=== PATIENT | male | born 1950 | race Caucasian/White ===

== ENCOUNTER 2018-02-20 09:05 | Inpatient (IN) | payer OTHER ==
--- NOTE | 2018-02-20 09:21 | PDOC ---
History of Present Illness - History of Present Illness Initial Comments: 02/20/18 10:14 The patient is a 67 year old male, with a significant past medical history of DM , kidney stones, and HTN, who presents to the emergency department with, decreased vision in the right eye and constipation. As per patient, he was on vacation in [place] 3 weeks ago when he experienced sudden onset right visit loss for 4 days and can now only see colors and light. As per patient, when arriving back home he began to experience constipation which prompted him to visit his PCP, Dr. Erick Rhodes, to whom performed an ultrasound which had abnormal findings. As per patient, his PCP advised him to report to the ED for admission and further testing. While in the ED, the patients endorses constipation and decreased right eye vision. He denies any recent fevers, chills, headache or dizziness. He denies any recent nausea, vomit, or diarrhea. He denies any recent chest pain or shortness of breath. He denies any recent dysuria, frequency, urgency or hematuria. Allergies: NKA Past surgical history: Kidney stones. Social History: Former smoker (20 years ago). Daily alcohol usage (a bottle of wine). Denies recreational drug use. Primary Care Physician: Dr. Erick Rhodes <Devang Sun - Last Filed: 02/20/18 10:14> - General History Source: Patient, Family Exam Limitations: No Limitations <Kerwin Gilbert - Last Filed: 02/20/18 14:56> - General Chief Complaint: Pain Stated Complaint: PAIN, PCP REFERRED Time Seen by Provider: 02/20/18 09:14 Past History <Devang Sun - Last Filed: 02/20/18 10:14> - Past Medical History Diabetes: Yes GI Disorders: No Disorders: Yes (stones) HTN: Yes Hypercholesterolemia: Yes Thyroid Disease: No - Suicide/Smoking/Psychosocial Hx Smoking History: Former smoker Have you smoked in the past 12 months: No If you are a former smoker, when did you quit?: 20yrs ago Hx Alcohol Use: Yes (wine daily) Substance Use Type: Alcohol <Kerwin Gilbert - Last Filed: 02/20/18 14:56> - Past Medical History Allergies/Adverse Reactions: Allergies Allergy/AdvReac Type Severity Reaction Status Date / Time No Known Drug Allergies Allergy Verified 02/20/18 09:28 Home Medications: Ambulatory Orders Insulin (Levemir) [Levemir Vial] 10 unit SQ DAILY 02/20/18 Metoprolol Succinate [Toprol Xl] 50 mg PO HS 02/20/18 Review of Systems - Review of Systems Able to Perform ROS?: Yes Comments:: 02/20/18 10:14 GENERAL/CONSTITUTIONAL: No fever or chills. No weakness. +HEAD, EYES, EARS, NOSE AND THROAT: Decreased vision in the right eye. No ear pain or discharge. No sore throat. CARDIOVASCULAR: No chest pain or shortness of breath. RESPIRATORY: No cough, wheezing, or hemoptysis. +GASTROINTESTINAL: Constipation. No nausea, vomiting, or diarrhea. GENITOURINARY: No dysuria, frequency, or change in urination. MUSCULOSKELETAL: No joint or muscle swelling or pain. No neck or back pain. SKIN: No rash NEUROLOGIC: No headache, vertigo, loss of consciousness, or change in strength/ sensation. ENDOCRINE: No increased thirst. No abnormal weight change. HEMATOLOGIC/LYMPHATIC: No anemia, easy bleeding, or history of blood clots. ALLERGIC/IMMUNOLOGIC: No hives or skin allergy. All Other Systems: Reviewed and Negative <Devang Sun - Last Filed: 02/20/18 10:14> *Physical Exam - Vital Signs Last Vital Signs Temp Pulse Resp BP Pulse Ox 97.8 F 75 16 164/97 100 02/20/18 09:10 02/20/18 09:10 02/20/18 09:10 02/20/18 09:10 02/20/18 09:10 - Physical Exam Comments: 02/20/18 10:14 GENERAL: Awake, alert, and fully oriented, in no acute distress HEAD: No signs of trauma NECK: Normal ROM. LUNGS: Breath sounds equal, clear to auscultation bilaterally. No wheezes, and no crackles HEART: Regular rate and rhythm, normal S1 and S2, no murmurs, rubs or gallops ABDOMEN: Soft, nontender. No guarding, no rebound. EXTREMITIES: No edema. No clubbing or cyanosis. No cords, erythema, or tenderness NEUROLOGICAL: Cranial nerves II through XII grossly intact. Normal speech. SKIN: Warm, Dry, normal turgor, no rashes or lesions noted. <Devang Sun - Last Filed: 02/20/18 10:14> Heart Score/ECG Review #1 ECG reviewed & interpreted by me at: 09:40 02/20/18 09:45 NSR 74, low voltage QRS, no std/migdalia, TWI III QTC 417 msec <Kerwin Gilbert - Last Filed: 02/20/18 14:56> ED Treatment Course - LABORATORY CBC & Chemistry Diagram: 02/20/18 10:00 02/20/18 10:00 <GeoffreyshelbyDevang sharpe - Last Filed: 02/20/18 10:14> - LABORATORY CBC & Chemistry Diagram: 02/20/18 10:00 02/20/18 10:00 <Kerwin Gilbert - Last Filed: 02/20/18 14:56> Medical Decision Making - Medical Decision Making 02/20/18 09:50 A portion of this note was written by my scribe, under my supervision. Vital Signs Temp Pulse Resp BP Pulse Ox 97.8 F 75 16 164/97 100 02/20/18 09:10 02/20/18 09:10 02/20/18 09:10 02/20/18 09:10 02/20/18 09:10 67 year old male c/ hx of HTN, DM presents for constipation. Few weeks ago, pt noted R eye vision loss and constipation when visiting [place]. Upon returning, pt visited PMD Dr. Erick Rhodes, and on 02/15, had abdominal ultrasound. Resulted noted in [facility] with masses in liver concerning for metastasis. Pt currently denies pain, fevers, chills, nausea, vomiting, diarrhea. Pt was sent by PMD for evaluation for cancer. I had discussed with case with Dr. Erick Rhodes. Requests CT head, chest, abdomen/pelvis, consultation for Dr. Ifeanyi Maharaj, and admission to his service. 02/20/18 14:56 Pt CR is 1.[address] scans initially without contrast. Will give IVF and at another time, will see if patient can get IV contrast for CT scans. <Kerwin Gilbert - Last Filed: 02/20/18 14:56> *DC/Admit/Observation/Transfer - Attestations Scribe Attestion: 02/20/18 10:14 Documentation prepared by Devang Sun, acting as diagnostic medical sonographer for Kerwin Gilbert MD. <Devang Sun - Last Filed: 02/20/18 10:14> - Discharge Dispostion Decision to Admit order: Yes <Kerwin Gilbert - Last Filed: 02/20/18 14:56> Diagnosis at time of Disposition: Liver mass - Discharge Dispostion Condition at time of disposition: Stable
[2018-02-20 09:28] VITALS: BMI 40.6
[2018-02-20] MEDS ORDERED: SODIUM CHLORIDE 1,000 ML IV STA (09:40)
[2018-02-20 10:18] LABS: BASO % 0.3 % (0-2.0); EOS % 2.5 % (0-4.5); HEMATOCRIT 39.7 % (35.4-49); HEMOGLOBIN 13.5 GM/dL (11.7-16.9); MCH 28.7 pg (25.7-33.7); MCHC 34.1 g/dl (32.0-35.9); MEAN CELL VOLUME 84.3 fl (80-96); MEAN PLT VOLUME 8.5 fl (7.5-11.1); MONO % 7.7 % (3.8-10.2); NEUT % 77.5 % (42.8-82.8); PLATELET COUNT 114 K/MM3 (134-434); RBC 4.71 M/mm3 (4.00-5.60); RDW 14.5 % (11.9-15.9); WHITE BLOOD COUNT 9.4 K/mm3 (4.0-10.0)
[2018-02-20 10:35] LABS: INR 1.18 (0.83-1.09); PROTHROMBIN TIME (PATIENT) 13.3 SEC (9.7-13.0)
[2018-02-20 10:37] LABS: ACTIVATED PTT 25.4 SECONDS (25.2-36.5)
[2018-02-20 10:43] LABS: ALBUMIN 3.8 g/dl (3.4-5.0); ANION GAP 10 (8-16); BLOOD UREA NITROGEN 35 mg/dL (7-18); CALCIUM 8.5 mg/dL (8.5-10.1); CHLORIDE 106 mmol/L (98-107); CO2 23 mmol/L (21-32); CREATININE 1.5 mg/dL (0.7-1.3); GLUCOSE,RANDOM 151 mg/dL (74-106); PHOSPHOROUS 3.3 mg/dL (2.5-4.9); POTASSIUM 4.5 mmol/L (3.5-5.1); SGOT/AST 20 U/L (15-37); SGPT/ALT 24 U/L (12-78); SODIUM 139 mmol/L (136-145)
[2018-02-20 10:46] LABS: ALK PHOS 163 U/L (45-117); BILIRUBIN,TOTAL 0.7 mg/dL (0.2-1.0); LIPASE 281 U/L (73-393); TOT PROT 6.6 g/dl (6.4-8.2)
--- NOTE | 2018-02-20 13:40 | EKG ---
Test Reason : Blood Pressure : / mmHG Vent. Rate : 074 BPM Atrial Rate : 074 BPM P-R Int : 154 ms QRS Dur : 078 ms QT Int : 376 ms P-R-T Axes : 037 012 007 degrees QTc Int : 417 ms NORMAL SINUS RHYTHM LOW VOLTAGE QRS CANNOT RULE OUT ANTERIOR INFARCT , AGE UNDETERMINED ABNORMAL ECG NO PREVIOUS ECGS AVAILABLE Confirmed by MUKESH CHRISTIE MD ([id number]) on 02/20/2018 1:40:06 PM Referred By: Confirmed By:MUKESH CHRISTIE MD
--- NOTE | 2018-02-20 14:26 | HP ---
Admitting History and Physical - Admission Chief Complaint: c/o abd pain difuse and n/v 3 x days. dehydration. ultrasoud showed tumors in lt / kidneys ? liver ect History Source: Patient Limitations to Obtaining History: No Limitations - Past Medical History Cardiovascular: Yes: HTN Gastrointestinal: Yes: Diverticulosis, Other (gall stones) Renal/: Yes: Renal Inusuff Musculoskeletal: Yes: Other (lt leg phlebitis tx already) Endocrine: Yes: Diabetes Mellitus - Past Surgical History Past Surgical History: Yes: None (rt ing hernia lt knee sx) - Smoking History Smoking history: Former smoker Have you smoked in the past 12 months: No If you are a former smoker, when did you quit?: 20yrs ago - Alcohol/Substance Use Hx Alcohol Use: Yes (wine daily) - Social History ADL: Independent History of Recent Travel: No Home Medications - Allergies Allergies/Adverse Reactions: Allergies Allergy/AdvReac Type Severity Reaction Status Date / Time No Known Drug Allergies Allergy Verified 02/20/18 09:28 - Home Medications Home Medications: Ambulatory Orders Insulin (Levemir) [Levemir Vial] 10 unit SQ DAILY 02/20/18 Metoprolol Succinate [Toprol Xl] 50 mg PO HS 02/20/18 Family Disease History - Family Disease History Family History: Unremarkable Review of Systems - Review of Systems Constitutional: reports: Loss of Appetite, Unintentional Wgt. Loss Eyes: reports: No Symptoms HENT: reports: No Symptoms Neck: reports: No Symptoms Cardiovascular: reports: No Symptoms Respiratory: reports: No Symptoms Gastrointestinal: reports: Abdominal Pain, Vomiting Genitourinary: reports: No Symptoms Breasts: reports: No Symptoms Reported Musculoskeletal: reports: No Symptoms Integumentary: reports: No Symptoms Neurological: reports: No Symptoms Endocrine: reports: No Symptoms Hematology/Lymphatic: reports: No Symptoms Psychiatric: reports: No Symptoms Physical Examination Vital Signs: Vital Signs Temperature 97.8 F 02/20/18 09:10 Pulse Rate 75 02/20/18 09:10 Respiratory Rate 16 02/20/18 09:10 Blood Pressure 164/97 02/20/18 09:10 O2 Sat by Pulse Oximetry (%) 100 02/20/18 09:10 Constitutional: Yes: Well Nourished Eyes: Yes: WNL HENT: Yes: WNL Neck: Yes: WNL Cardiovascular: Yes: WNL Respiratory: Yes: WNL Gastrointestinal: Yes: Hypoactive Bowel Sounds, Tenderness ...Rectal Exam: Yes: Deferred Renal/: Yes: WNL Breast(s): Yes: WNL Musculoskeletal: Yes: WNL Extremities: Yes: WNL Edema: No Peripheral Pulses WNL: Yes Integumentary: Yes: WNL Neurological: Yes: WNL ...Motor Strength: WNL Psychiatric: Yes: WNL Labs: CBC, BMP 02/20/18 10:00 02/20/18 10:00 Problem List - Problems (1) Gallstone Code(s): K80.20 - CALCULUS OF GALLBLADDER W/O CHOLECYSTITIS W/O OBSTRUCTION (2) HTN (hypertension) Code(s): I10 - ESSENTIAL (PRIMARY) HYPERTENSION (3) Diabetes 1.5, managed as type 2 Code(s): E10.9 - TYPE 1 DIABETES MELLITUS WITHOUT COMPLICATIONS (4) CRF (chronic renal failure) Code(s): N18.9 - CHRONIC KIDNEY DISEASE, UNSPECIFIED (5) Thrombocytopenia Code(s): D69.6 - THROMBOCYTOPENIA, UNSPECIFIED Assessment/Plan ct abd pelviiv meds asd per home onco to see pt gi to see pt diet ect see labs in am
[2018-02-20 14:55] LABS: URINE APPEARANCE CLEAR; URINE BILIRUBIN NEGATIVE (<2.0 mg/dL); URINE COLOR YELLOW; URINE GLUCOSE (UA) NEGATIVE (NEGATIVE); URINE KETONE NEGATIVE (NEGATIVE); URINE LEUK ESTERASE NEGATIVE (NEGATIVE); URINE NITRITE NEGATIVE (NEGATIVE); URINE PROTEIN NEGATIVE (NEGATIVE); URINE UROBILINOGEN NEGATIVE mg/dL (0.2-1.0)
[2018-02-20 15:01] LABS: EPI CELLS RARE /HPF (FEW); URINE MUCUS RARE
[2018-02-20] MEDS: SODIUM CHLORIDE 1,000 ML IV SCH (15:06)
--- NOTE | 2018-02-20 16:50 | CON.GI ---
Consult Consult Specialty:: GI Reason for Consultation:: abnormal CT scan of the abdomen - History of Present Illness History of Present Illness: Chart reviewed. per initial intake: The patient is a 67 year old male, with a significant past medical history of DM, kidney stones, and HTN, who presents to the emergency department with, decreased vision in the right eye and constipation. As per patient, he was on vacation in [place] 3 weeks ago when he experienced sudden onset right visit loss for 4 days and can now only see colors and light. As per patient, when arriving back home he began to experience constipation which prompted him to visit his PCP, Dr. Erick Rhodes, to whom performed an ultrasound which had abnormal findings. As per patient, his PCP advised him to report to the ED for admission and further testing. While in the ED, the patient s endorses constipation and decreased right eye vision. He denies any recent fevers, chills, headache or dizziness. He denies any recent nausea, vomit, or diarrhea. He denies any recent chest pain or shortness of breath. He denies any recent dysuria, frequency, urgency or hematuria. Allergies: NKA Past surgical history: Kidney stones. Social History: Former smoker (20 years ago). Daily alcohol usage (a bottle of wine). Denies recreational drug use. CT A/P w/o revealed a possible pancreastic mass and multiple liver lesions. At the time of this encounter, the pt appears not in distress, or discomfort. C /o mild epigastric pain and tenderness x 2 weeks. C/o constipation x 2 weeks. No melena, hematochezia, hematemeis, dysphagis odynophagia, jaundice, fever, chills. A colonoscopy 2-3 y ago revealed a polyp. Neever had EGD. Corroborates the history as documented in ED. Family history significant for diverticulosis - History Source History Provided By: Patient, Medical Record Limitations to Obtaining History: No Limitations - Past Medical History Cardio/Vascular: Yes: HTN Gastrointestinal: Yes: Diverticulosis, Other (gall stones) Renal/: Yes: Renal Inusuff Musculoskeletal: Yes: Other (lt leg phlebitis tx already) Endocrine: Yes: Diabetes Mellitus - Past Surgical History Past Surgical History: Yes: None (rt ing hernia lt knee sx) - Alcohol/Substance Use Hx Alcohol Use: Yes (wine daily) - Smoking History Smoking history: Former smoker Have you smoked in the past 12 months: No If you are a former smoker, when did you quit?: 20yrs ago - Social History ADL: Independent History of Recent Travel: No Home Medications - Allergies Allergies/Adverse Reactions: Allergies Allergy/AdvReac Type Severity Reaction Status Date / Time No Known Drug Allergies Allergy Verified 02/20/18 09:28 - Home Medications Home Medications: Ambulatory Orders Insulin (Levemir) [Levemir Vial] 10 unit SQ DAILY 02/20/18 Metoprolol Succinate [Toprol Xl] 50 mg PO HS 02/20/18 Family Disease History - Family Disease History Family History: Unremarkable (non-contrib) Review of Systems Findings/Remarks: as per HPI, ED , and H&P Physical Exam-GI Vital Signs: Vital Signs Temperature 97.8 F 02/20/18 09:10 Pulse Rate 72 02/20/18 14:42 Respiratory Rate 18 02/20/18 14:42 Blood Pressure 149/92 02/20/18 14:42 O2 Sat by Pulse Oximetry (%) 100 02/20/18 14:42 Constitutional: Yes: Well Nourished, No Distress, Calm Eyes: Yes: Conjunctiva Clear Neck: Yes: Supple Respiratory: Yes: Regular Gastrointestinal Inspection: Yes: Distention. No: Ascites ...Auscultate: Yes: Normoactive Bowel Sounds ...Palpate: Yes: Soft, Tenderness (epig, mild). No: Firm/Rigid, Guarding, Mass Neurological: Yes: Alert, Oriented Labs: CBC, BMP 02/20/18 10:00 02/20/18 10:00 INR, PTT INR 1.18 (0.83-1.09) H 02/20/18 10:00 Laboratory Last Values WBC 9.4 K/mm3 (4.0-10.0) 02/20/18 10:00 RBC 4.71 M/mm3 (4.00-5.60) 02/20/18 10:00 Hgb 13.5 GM/dL (11.7-16.9) 02/20/18 10:00 Hct 39.7 % (35.4-49) 02/20/18 10:00 MCV 84.3 fl (80-96) 02/20/18 10:00 MCH 28.7 pg (25.7-33.7) 02/20/18 10:00 MCHC 34.1 g/dl (32.0-35.9) 02/20/18 10:00 RDW 14.5 % (11.9-15.9) 02/20/18 10:00 Plt Count 114 K/MM3 (134-434) L D 02/20/18 10:00 MPV 8.5 fl (7.5-11.1) 02/20/18 10:00 Absolute Neuts (auto) 7.2 # 02/20/18 10:00 Neutrophils % 77.5 % (42.8-82.8) 02/20/18 10:00 Lymphocytes % 12.0 % (8-40) D 02/20/18 10:00 Monocytes % 7.7 % (3.8-10.2) 02/20/18 10:00 Eosinophils % 2.5 % (0-4.5) D 02/20/18 10:00 Basophils % 0.3 % (0-2.0) 02/20/18 10:00 Nucleated RBC % 0 % (0-0) 02/20/18 10:00 PT with INR 13.30 SEC (9.7-13.0) H 02/20/18 10:00 INR 1.18 (0.83-1.09) H 02/20/18 10:00 PTT (Actin FS) 25.4 SECONDS (25.2-36.5) 02/20/18 10:00 Sodium 139 mmol/L (136-145) 02/20/18 10:00 Potassium 4.5 mmol/L (3.5-5.1) 02/20/18 10:00 Chloride 106 mmol/L (98-107) 02/20/18 10:00 Carbon Dioxide 23 mmol/L (21-32) 02/20/18 10:00 Anion Gap 10 (8-16) 02/20/18 10:00 BUN 35 mg/dL (7-18) H 02/20/18 10:00 Creatinine 1.5 mg/dL (0.7-1.3) H 02/20/18 10:00 Creat Clearance w eGFR 46.40 (>60) 02/20/18 10:00 Random Glucose 151 mg/dL (74-106) H 02/20/18 10:00 Lactic Acid 1.5 mmol/L (0.0-2.0) 02/20/18 09:50 Calcium 8.5 mg/dL (8.5-10.1) 02/20/18 10:00 Phosphorus 3.3 mg/dL (2.5-4.9) 02/20/18 10:00 Magnesium 2.0 mg/dL (1.8-2.4) 02/20/18 10:00 Total Bilirubin 0.7 mg/dL (0.2-1.0) 02/20/18 10:00 AST 20 U/L (15-37) D 02/20/18 10:00 ALT 24 U/L (12-78) D 02/20/18 10:00 Alkaline Phosphatase 163 U/L (45-117) H 02/20/18 10:00 Creatine Kinase 31 IU/L (39-308) L 02/20/18 10:00 Troponin I < 0.02 ng/ml (0.00-0.05) 02/20/18 10:00 C-Reactive Protein 3.0 MG/DL (0.00-0.3) H 02/20/18 10:00 Total Protein 6.6 g/dl (6.4-8.2) 02/20/18 10:00 Albumin 3.8 g/dl (3.4-5.0) 02/20/18 10:00 Lipase 281 U/L (73-393) 02/20/18 10:00 Urine Color Yellow 02/20/18 14:35 Urine Appearance Clear 02/20/18 14:35 Urine pH 5.0 (5.0-8.0) 02/20/18 14:35 Ur Specific [place] 1.019 (1.001-1.035) 02/20/18 14:35 Urine Protein Negative (NEGATIVE) 02/20/18 14:35 Urine Glucose (UA) Negative (NEGATIVE) 02/20/18 14:35 Urine Ketones Negative (NEGATIVE) 02/20/18 14:35 Urine Blood 1+ (NEGATIVE) H 02/20/18 14:35 Urine Nitrite Negative (NEGATIVE) 02/20/18 14:35 Urine Bilirubin Negative (<2.0 mg/dL) 02/20/18 14:35 Urine Urobilinogen Negative mg/dL (0.2-1.0) 02/20/18 14:35 Ur Leukocyte Esterase Negative (NEGATIVE) 02/20/18 14:35 Urine WBC (Auto) 1 /hpf (3-5) 02/20/18 14:35 Urine RBC (Auto) 6 /hpf (0-3) 02/20/18 14:35 Ur Epithelial Cells Rare /HPF (FEW) 02/20/18 14:35 Urine Mucus Rare 02/20/18 14:35 Gestational Age Cancelled 02/20/18 15:29 Maternl Age at Due Date Cancelled 02/20/18 15:29 Maternal Race Cancelled 02/20/18 15:29 Maternal Weight Cancelled 02/20/18 15:29 Insulin Depend Diabetes Cancelled 02/20/18 15:29 Multiple Cancelled 02/20/18 15:29 AFP Triple Screen Note Cancelled 02/20/18 15:29 AFP Triple Scrn Commnt Cancelled 02/20/18 15:29 AFP Absolute Value Cancelled 02/20/18 15:29 HCG Absolute Value Cancelled 02/20/18 15:29 HCG Adjusted MoM Cancelled 02/20/18 15:29 Dimeric Inhibin A MoM Cancelled 02/20/18 15:29 Down Mat Age Risk (1 in Cancelled 02/20/18 15:29 Down's 2nd Trimestr Risk Cancelled 02/20/18 15:29 Trisomy 18 Age Risk Cancelled 02/20/18 15:29 Trisomy 18 Increas Risk Cancelled 02/20/18 15:29 Spina Bifida Risk (1 in Cancelled 02/20/18 15:29 Imaging - Results Cat Scan: Report Reviewed (w/o contrast) Problem List - Problems (1) Epigastric abdominal pain Code(s): R10.13 - EPIGASTRIC PAIN (2) Abnormal abdominal CT scan Code(s): R93.5 - ABN FINDINGS ON DX IMAGING OF ABD REGIONS, INC RETROPERITON Assessment/Plan A 67M with the above findings on non-contrast CT, normal CBC, liver chemistry, bili, alp, lipase, no hx of jaundice, or weight loss. Ex-tobacco smoker and current daily wine drinker. Recommend: MRI of the abdomen with and without contrast. Agree with CA 19-9, CEA , AFP, CA-125. EGD and colonoscopy will be discussed after the MRI. WIll follow.
[2018-02-20] MEDS: INSULIN (LEVEMIR) 100 UNITS/ML UNITS SQ SCH (23:04)
[2018-02-21 08:51] LABS: ALBUMIN 3.4 g/dl (3.4-5.0); ANION GAP 6 (8-16); BILIRUBIN,TOTAL 0.6 mg/dL (0.2-1.0); BLOOD UREA NITROGEN 27 mg/dL (7-18); CALCIUM 8.1 mg/dL (8.5-10.1); CHLORIDE 107 mmol/L (98-107); CO2 26 mmol/L (21-32); CREATININE 1.3 mg/dL (0.7-1.3); GLUCOSE,RANDOM 118 mg/dL (74-106); POTASSIUM 4.6 mmol/L (3.5-5.1); SGOT/AST 18 U/L (15-37); SGPT/ALT 24 U/L (12-78); SODIUM 139 mmol/L (136-145); TOT PROT 6.2 g/dl (6.4-8.2)
[2018-02-21 08:52] LABS: ALK PHOS 154 U/L (45-117)
[2018-02-21 08:56] LABS: BASO % 0.3 % (0-2.0); EOS % 2.7 % (0-4.5); HEMATOCRIT 39.7 % (35.4-49); HEMOGLOBIN 13.3 GM/dL (11.7-16.9); LYMPH % 12.6 % (8-40); MCH 28.7 pg (25.7-33.7); MCHC 33.7 g/dl (32.0-35.9); MEAN CELL VOLUME 85.4 fl (80-96); MEAN PLT VOLUME 8.8 fl (7.5-11.1); MONO % 7.9 % (3.8-10.2); NEUT % 76.5 % (42.8-82.8); PLATELET COUNT 101 K/MM3 (134-434); RBC 4.65 M/mm3 (4.00-5.60); RDW 14.5 % (11.9-15.9); WHITE BLOOD COUNT 8.5 K/mm3 (4.0-10.0)
[2018-02-21] MEDS: LISINOPRIL 5 MG TABLET (FP) PO SCH (09:33)
[2018-02-21] MEDS ORDERED: ASPIRIN COATED 81 MG TABLET.EC PO SCH (10:00)
--- NOTE | 2018-02-21 10:52 | PN ---
Progress Note, Physician Chief Complaint: ruq pain scale of 7 increased ikling down rad to back - Current Medication List Current Medications: Active Medications Aspirin (Ecotrin -) 81 mg PO DAILY [facility] Last Admin: 02/21/18 09:33 Dose: 81 mg Sodium Chloride (Normal Saline -) 1,000 mls @ 42 mls/hr IV ASDIR [facility] Last Admin: 02/20/18 15:06 Dose: 42 mls/hr Insulin Detemir (Levemir Vial) 10 units SQ HS [facility] Last Admin: 02/20/18 23:04 Dose: Not Given Lisinopril (Prinivil) 5 mg PO DAILY [facility] Last Admin: 02/21/18 09:33 Dose: 5 mg Metoprolol Succinate (Toprol Xl -) 50 mg PO DAILY [facility] Last Admin: 02/21/18 09:33 Dose: 50 mg - Objective Vital Signs: Vital Signs Temperature 98.3 F 02/21/18 05:06 Pulse Rate 73 02/21/18 05:06 Respiratory Rate 20 02/21/18 05:06 Blood Pressure 138/85 02/21/18 05:06 O2 Sat by Pulse Oximetry (%) 96 02/21/18 01:51 Constitutional: Yes: No Distress Eyes: Yes: WNL HENT: Yes: WNL Neck: Yes: WNL Cardiovascular: Yes: WNL Respiratory: Yes: WNL Gastrointestinal: Yes: Tenderness, Other (dierrea) ...Rectal Exam: Yes: Deferred Genitourinary: Yes: WNL Breast(s): Yes: WNL Musculoskeletal: Yes: WNL Extremities: Yes: WNL Edema: No Peripheral Pulses WNL: Yes Integumentary: Yes: WNL Neurological: Yes: WNL ...Motor Strength: WNL Psychiatric: Yes: WNL Labs: CBC, BMP 02/21/18 07:21 02/21/18 07:21 INR, PTT INR 1.18 (0.83-1.09) H 02/20/18 10:00 Problem List - Problems (1) Gallstone Code(s): K80.20 - CALCULUS OF GALLBLADDER W/O CHOLECYSTITIS W/O OBSTRUCTION (2) HTN (hypertension) Code(s): I10 - ESSENTIAL (PRIMARY) HYPERTENSION (3) Diabetes 1.5, managed as type 2 Code(s): E10.9 - TYPE 1 DIABETES MELLITUS WITHOUT COMPLICATIONS (4) CRF (chronic renal failure) Code(s): N18.9 - CHRONIC KIDNEY DISEASE, UNSPECIFIED (5) Thrombocytopenia Code(s): D69.6 - THROMBOCYTOPENIA, UNSPECIFIED Assessment/Plan cret better will do mri abd pancreas cont as is tramadol for pain chk labs in am gi ? scoping onco f/u
--- NOTE | 2018-02-21 11:27 | CONSULT ---
Consultation: REQUESTING PROVIDER: CONSULT REQUEST: We have been asked to medically evaluate this patient for ( Hematology- oncology). HISTORY OF PRESENT ILLNESS: 67 y/o male with PMH of DM, kidney stones, HTN came to hospital with a complaint of progressive constipation and pain in RUQ. Patient states that constipation started few weeks ago. Usually he use to have 2 -3 bowel movements in a day but now from few weeks he have bowel movement once in 2 days. States caliber of stool has changed and its like thin, but he didn't notice any blood and mucus in stool. He denies activities aide diarrhoea but he noticed feeling of incomplete defecation. States color of stool is brown. Denies any yellow discoloration of eyes and skin. Denies change in weight and appetite. Also report pain in RUQ from 2 week, moderate to sever in intensity, sharp, intermittent gets better itself, tender on palpation. Denies fever, chills, sob, chest pain, numbness or weakness in any part of body. Also reports loss of vision in right eye, States he has progressive decreased vision in his right eye from one month and he didnt follow any doctor for it but now from last few days he cant see any thing from right eye. PMH: DM, kidney stones, HTN PSH: kidney stone social: Former smoked, smoked for 25 years, pack a day, stopped 20 years ago. drinks one bottle of wine every day. 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 Family: Mother from stroke. Father from natural cause. sister has GI cancer, details not available. children healthy REVIEW OF SYSTEMS: CONSTITUTIONAL: Absent: fever, chills, diaphoresis, generalized weakness, HEENT: Absent: rhinorrhea, nasal congestion, throat pain, throat swelling, difficulty swallowing, CARDIOVASCULAR: Absent: chest pain, syncope, palpitations, irregular heart rate, RESPIRATORY: Absent: cough, shortness of breath, dyspnea with exertion, GASTROINTESTINAL: as above GENITOURINARY: Absent: dysuria, frequency, urgency, hesitancy, MUSCULOSKELETAL: Absent: myalgia, arthralgia, joint swelling, SKIN: Absent: rash, itching, pallor HEMATOLOGIC/IMMUNOLOGIC: Absent: easy bleeding, easy bruising, lymphadenopathy, frequent infections ENDOCRINE: Absent: unexplained weight gain, unexplained weight loss, heat intolerance, cold intolerance NEUROLOGIC: Absent: headache, focal weakness or paresthesias, dizziness, unsteady gait, seizure, mental status changes, bladder or bowel incontinence PSYCHIATRIC: Absent: anxiety, depression, PHYSICAL EXAMINATION 02/21/18 02/21/18 01:51 05:06 Temperature 98.3 F Pulse Rate 73 Pulse Rate [ Radial] Respiratory 20 20 Rate Blood Pressure 138/85 Blood Pressure [Right Arm] O2 Sat by Pulse 96 Oximetry (%) GENERAL: Awake, alert, and fully oriented, in no acute distress. HEAD: Normal with no signs of trauma. EYES:, sclera anicteric, conjunctiva clear. EARS, NOSE, THROAT: oropharynx clear without exudates. Moist mucous membranes. NECK: Normal range of motion, supple without lymphadenopathy, LUNGS: Breath sounds equal, clear to auscultation bilaterally. No wheezes, and no crackles. No accessory muscle use. HEART: Regular rate and rhythm, normal S1 and S2 ABDOMEN: Soft, mild tender in RUQ, not distended, normoactive bowel sounds, no guarding, no rebound, hepatomegaly, no splenomegaly. Scrotum: No testicular mass, circumcised. MUSCULOSKELETAL: Normal range of motion at all joints. No bony deformities or tenderness. No CVA tenderness. UPPER EXTREMITIES: 2+ pulses, warm, well-perfused. No cyanosis. No clubbing. No peripheral edema. LOWER EXTREMITIES:warm, well-perfused. No calf tenderness. No peripheral edema. NEUROLOGICAL: . Normal speech. Normal gait. PSYCHIATRIC: Cooperative. Good eye contact. SKIN: Warm, dry, Laboratory Results - last 24 hr 02/20/18 02/20/18 02/20/18 10:00 14:35 15:00 WBC RBC Hgb Hct MCV MCH MCHC RDW Plt Count MPV Absolute Neuts (auto) Neutrophils % Lymphocytes % Monocytes % Eosinophils % Basophils % Nucleated RBC % ESR Sodium 139 Potassium 4.5 Chloride 106 Carbon Dioxide 23 Anion Gap 10 BUN 35 H Creatinine 1.5 H Creat Clearance w eGFR 46.40 POC Glucometer Random Glucose 151 H Calcium 8.5 Phosphorus 3.3 Magnesium 2.0 Total Bilirubin 0.7 AST 20 D ALT 24 D Alkaline Phosphatase 163 H Creatine Kinase 31 L Troponin I < 0.02 C-Reactive Protein 3.0 H Total Protein 6.6 Albumin 3.8 Lipase 281 CA 19-9 Antigen 76019 H Urine Color Yellow Urine Appearance Clear Urine pH 5.0 Ur Specific [place] 1.019 Urine Protein Negative Urine Glucose (UA) Negative Urine Ketones Negative Urine Blood 1+ H Urine Nitrite Negative Urine Bilirubin Negative Urine Urobilinogen Negative Ur Leukocyte Esterase Negative Urine WBC (Auto) 1 Urine RBC (Auto) 6 Ur Epithelial Cells Rare Urine Mucus Rare Gestational Age Maternl Age at Due Date Maternal Race Maternal Weight Insulin Depend Diabetes Multiple AFP Triple Screen Note AFP Triple Scrn Commnt AFP Absolute Value HCG Absolute Value HCG Adjusted MoM Dimeric Inhibin A MoM Down Mat Age Risk (1 in Down's 2nd Trimestr Risk Trisomy 18 Age Risk Trisomy 18 Increas Risk Spina Bifida Risk (1 in Active Medications Generic Name Dose Route Start Last Admin Trade Name Freq PRN Reason Stop Dose Admin Aspirin 81 mg 02/21/18 10:00 02/21/18 09:33 Ecotrin - PO 81 mg DAILY ZENY Administration Sodium Chloride 1,000 mls @ 42 mls/hr 02/20/18 14:45 02/20/18 15:06 Normal Saline - IV 42 mls/hr ASDIR ZENY Administration Insulin Detemir 10 units 02/20/18 22:00 02/20/18 23:04 Levemir Vial SQ Not Given HS ZENY Lisinopril 5 mg 02/21/18 10:00 02/21/18 09:33 Prinivil PO 5 mg DAILY ZENY Administration Metoprolol Succinate 50 mg 02/21/18 10:00 02/21/18 09:33 Toprol Xl - PO 50 mg DAILY ZENY Administration Tramadol HCl 50 mg 02/21/18 22:00 Ultram - PO 02/25/18 23:59 BID ZENY Laboratory Tests 02/20/18 15:00 CA 19-9 Antigen 19939 H ASSESSMENT/PLAN:A 67M with findings of mass in tail of pancreas about 4 cm and multiple lesions in liver with max size of 6.8 with elevated ca 19-9 suggest he might have Ca. pancreas with metastatic disease. Patient needs to have liver biopsy for which we will hold his aspirin and start him on lovenox for dvt prophylaxis. CA 19-9 elevated ( [id number]) rest markers pending CEA, AFP, CA125. MRI of the abdomen with and without contrast pending. Consider opthalmology consult for loss of vision in eye. GI follow up. Dispo: We will continue to follow the patient. Thank you for this consultative opportunity. Visit type - Emergency Visit Emergency Visit: Yes ED Registration Date: 02/20/18 Care time: The patient presented to the Emergency Department on the above date and was hospitalized for further evaluation of their emergent condition. - New Patient This patient is new to me today: Yes Date on this admission: 02/23/18 - Critical Care Critical Care patient: No
--- NOTE | 2018-02-21 17:53 | PN ---
Teaching Attending Note Name of Resident: Alfredito Brady ATTENDING PHYSICIAN STATEMENT I saw and evaluated the patient. I reviewed the resident's note and discussed the case with the resident. I agree with the resident's findings and plan as documented. SUBJECTIVE:67 year old male presents with RUQ pain Pancreatic mass in tail and liver masses suspicious for mets on CT. Also loss of vision in right eye which occurred rather acutely and has progressed over past one month. OBJECTIVE: Last Vital Signs Temp Pulse Resp BP Pulse Ox 98.0 F 71 18 136/82 96 02/21/18 15:02/21/18 15:02/21/18 15:02/21/18 15:02/21/18 14:00 HEENT: JUAN, EOM Intact, right ptosis Oropharynx: No thrush, No mucositis Neck: Supple Nodes: Without adenopathy Breasts: Without masses Cor: RSR, No murmurs, No gallops Lungs: Clear to P&A Abd: Soft, Normal bowel sounds, No organomegaly, distended testes descended circumcised Ext:No significant edema Skin: No rashes, Integument intact ASSESSMENT AND PLAN: Pancreatic tail mass with liver masses . Ca-19.9 of >24,000. Picture compatible with pancreatic ca with liver mets, Right eye visual loss--? embolic , ? thrombotic from hypercoagulability ? marantic endocarditis. Plan: D/C ASA Liver biopsy when off ASA 5+ days by I.R> DVT prophylaxis Opthalmology consult
[2018-02-21] MEDS: SODIUM CHLORIDE 1,000 ML IV SCH (18:32)
[2018-02-21] MEDS: ENOXAPARIN NA (PORCINE) 40 MG/0.4 ML DISP.SYRIN SQ SCH (18:32)
[2018-02-21] MEDS: traMADol HCL 50 MG TABLET PO SCH (21:44)
[2018-02-21] MEDS: INSULIN (LEVEMIR) 100 UNITS/ML UNITS SQ SCH (21:46)
[2018-02-22] MEDS ORDERED: INSULIN (LEVEMIR) 100 UNITS/ML UNITS SQ ONE (07:04)
[2018-02-22] MEDS ORDERED: INSULIN (NOVOLOG) ASPART 100 UNITS/ML 10ML VIAL ONE (07:04)
[2018-02-22 08:12] LABS: HEMATOCRIT 37.5 % (35.4-49); HEMOGLOBIN 12.8 GM/dL (11.7-16.9); INR 1.19 (0.83-1.09); MEAN CELL VOLUME 85.2 fl (80-96); PLATELET COUNT 106 K/MM3 (134-434); PROTHROMBIN TIME (PATIENT) 13.4 SEC (9.7-13.0); RBC 4.41 M/mm3 (4.00-5.60); RDW 14.5 % (11.9-15.9); WHITE BLOOD COUNT 7.8 K/mm3 (4.0-10.0)
[2018-02-22 08:15] LABS: ACTIVATED PTT 30.7 SECONDS (25.2-36.5)
[2018-02-22 08:53] LABS: ANION GAP 6 (8-16); BLOOD UREA NITROGEN 22 mg/dL (7-18); CALCIUM 7.8 mg/dL (8.5-10.1); CHLORIDE 108 mmol/L (98-107); CO2 23 mmol/L (21-32); GLUCOSE,RANDOM 117 mg/dL (74-106); POTASSIUM 4.3 mmol/L (3.5-5.1); SODIUM 137 mmol/L (136-145)
[2018-02-22 08:57] LABS: ALK PHOS 146 U/L (45-117); BILIRUBIN,TOTAL 0.5 mg/dL (0.2-1.0); CREATININE 1.2 mg/dL (0.7-1.3); SGOT/AST 17 U/L (15-37); SGPT/ALT 23 U/L (12-78); TOT PROT 5.7 g/dl (6.4-8.2)
[2018-02-22] MEDS: ENOXAPARIN NA (PORCINE) 40 MG/0.4 ML DISP.SYRIN SQ SCH (09:42)
[2018-02-22] MEDS: traMADol HCL 50 MG TABLET PO SCH ×2 (09:43→21:05)
[2018-02-22] MEDS: LISINOPRIL 5 MG TABLET (FP) PO SCH (09:46)
--- NOTE | 2018-02-22 12:16 | ECHO ---
Name: DOMENICA ADAMS Exam:Adult Echocardiogram Study Date: 02/22/2018 11:05 AM Age: 67 yrs Reason For Study: EYE LOSS VISION Height: 66 in Weight: 252 lb BSA: 2.2 m2 MMode/2D Measurements & Calculations IVSd: 1.3 cm Ao root diam: 3.8 cm LVIDd: 5.0 cm LA dimension: 3.6 cm LVIDs: 3.4 cm LVPWd: 1.3 cm EDV(Teich): 117.7 ml ESV(Teich): 46.3 ml Doppler Measurements & Calculations MV E max erik: 81.0 cm/sec Med Peak E' Erik: 6.5 cm/sec MV A max erik: 74.2 cm/sec Med E/e': 12.4 MV E/A: 1.1 Lat Peak E' Erik: 8.6 cm/sec MV dec time: 0.36 sec Lat E/e': 9.4 Left Ventricle The left ventricle is normal in size. There is mild concentric left ventricular hypertrophy. The left ventricular ejection fraction is normal. Right Ventricle The right ventricular systolic function is normal. Atria Normal left and right atrial size and function. Mitral Valve There is mild mitral regurgitation. Tricuspid Valve There is trace tricuspid regurgitation. Aortic Valve There is trivial aortic sclerosis.;. Great Vessels The aortic root is normal size. Pericardium/Pleura There is no pericardial effusion. Interpretation Summary The right ventricular systolic function is normal. Normal left and right atrial size and function. There is mild mitral regurgitation. There is trace tricuspid regurgitation. There is trivial aortic sclerosis.; The aortic root is normal size. There is no pericardial effusion. Kaushik Villela MD 02/22/2018 12:15 PM
--- NOTE | 2018-02-22 18:04 | CON.GU ---
Consult Consult Specialty:: Reason for Consultation:: renal calculi - History of Present Illness History of Present Illness: 67 year old male, with a significant past medical history of DM, kidney stones, and HTN, who presents to the emergency department with, decreased vision in the right eye and constipation. As per patient, he was on vacation in [place] 3 weeks ago when he experienced sudden onset right visit loss for 4 days and can now only see colors and light. As per patient, when arriving back home he began to experience constipation which prompted him to visit his PCP, Dr. Erick Rhodes, to whom performed an ultrasound which had abnormal findings. As per patient, his PCP advised him to report to the ED for admission and further testing. While in the ED, the patients endorses constipation and decreased right eye vision. He denies any recent fevers, chills, headache or dizziness. He denies any recent nausea, vomit, or diarrhea. He denies any recent chest pain or shortness of breath. He denies any recent dysuria, frequency, urgency or hematuria. He was found to have pancreatic mass w liver lesions c/w metastatic pancreatic ca and renal calculi and cons req. - History Source History Provided By: Patient, Medical Record Limitations to Obtaining History: No Limitations - Past Medical History Cardio/Vascular: Yes: HTN Gastrointestinal: Yes: Diverticulosis, Other (gall stones) Renal/: Yes: Renal Inusuff Musculoskeletal: Yes: Other (lt leg phlebitis tx already) Endocrine: Yes: Diabetes Mellitus - Past Surgical History Past Surgical History: Yes: None (rt ing hernia lt knee sx) - Alcohol/Substance Use Hx Alcohol Use: Yes (wine daily) - Smoking History Smoking history: Former smoker Have you smoked in the past 12 months: No If you are a former smoker, when did you quit?: 20yrs ago - Social History ADL: Independent History of Recent Travel: No Home Medications - Allergies Allergies/Adverse Reactions: Allergies Allergy/AdvReac Type Severity Reaction Status Date / Time No Known Drug Allergies Allergy Verified 02/20/18 09:28 - Home Medications Home Medications: Ambulatory Orders Insulin (Levemir) [Levemir Vial] 10 unit SQ DAILY 02/20/18 Metoprolol Succinate [Toprol Xl] 50 mg PO HS 02/20/18 Review of Systems - Review of Systems Genitourinary: denies: Flank Pain Physical Exam- Vital Signs: Vital Signs Temperature 98.2 F 02/22/18 15:16 Pulse Rate 79 02/22/18 15:16 Respiratory Rate 18 02/22/18 15:16 Blood Pressure 130/75 02/22/18 15:16 O2 Sat by Pulse Oximetry (%) 96 02/22/18 09:00 Constitutional: Yes: Well Nourished, No Distress, Calm Gastrointestinal: Yes: WNL, Normal Bowel Sounds, Soft Renal/: Yes: WNL Kidneys: Yes: WNL Pelvis: Yes: WNL Testicles: Yes: WNL, Descended Scrotum: Yes: WNL Penis: Yes: WNL Prostate Exam: Yes: WNL Musculoskeletal: Yes: WNL Extremities: Yes: WNL Labs: CBC, BMP 02/22/18 07:00 02/22/18 07:00 Imaging - Results Cat Scan: Report Reviewed Problem List - Problems (1) Renal calculi Assessment/Plan: f/u w Dr Blayne Rhodes after disch for ESWL . Code(s): N20.0 - CALCULUS OF KIDNEY (2) Pancreatic mass Code(s): K86.9 - DISEASE OF PANCREAS, UNSPECIFIED
--- NOTE | 2018-02-22 18:50 | PN ---
Physical Exam: SUBJECTIVE: Patient seen and examined sitting comfortably denies pain OBJECTIVE: Vital Signs Period Temp Pulse Resp BP Sys/Thompson Pulse Ox Last 24 Hr 97.5 F-98.4 F 65-79 18-20 122-150/72-93 96-96 GENERAL: Awake, alert, and fully oriented, in no acute distress. HEAD: Normal with no signs of trauma. EYES:, sclera anicteric, conjunctiva clear. EARS, NOSE, THROAT: oropharynx clear without exudates. Moist mucous membranes. NECK: Normal range of motion, supple without lymphadenopathy, LUNGS: Breath sounds equal, clear to auscultation bilaterally. No wheezes, and no crackles. No accessory muscle use. HEART: Regular rate and rhythm, normal S1 and S2 ABDOMEN: Soft, mild tender in RUQ, not distended, normoactive bowel sounds, no guarding, no rebound, hepatomegaly, no splenomegaly. Scrotum: No testicular mass, circumcised. MUSCULOSKELETAL: Normal range of motion at all joints. No bony deformities or tenderness. No CVA tenderness. UPPER EXTREMITIES: 2+ pulses, warm, well-perfused. No cyanosis. No clubbing. No peripheral edema. LOWER EXTREMITIES:warm, well-perfused. No calf tenderness. No peripheral edema. NEUROLOGICAL: . Normal speech. Normal gait. PSYCHIATRIC: Cooperative. Good eye contact. SKIN: Warm, dry, Laboratory Results - last 24 hr 02/20/18 02/21/18 02/21/18 15:29 07:21 21:46 WBC RBC Hgb Hct MCV MCH MCHC RDW Plt Count MPV PT with INR INR PTT (Actin FS) Sodium Potassium Chloride Carbon Dioxide Anion Gap BUN Creatinine Creat Clearance w eGFR POC Glucometer 186 Random Glucose Calcium Total Bilirubin AST ALT Alkaline Phosphatase Total Protein Albumin Tumor Marker AFP 3.8 Carcinoembryonic Ag 13.0 H CA 125 Antigen 384.2 Gestational Age Cancelled Maternl Age at Due Date Cancelled Maternal Race Cancelled Maternal Weight Cancelled Insulin Depend Diabetes Cancelled Multiple Cancelled AFP Triple Screen Note Cancelled AFP Triple Scrn Commnt Cancelled AFP Absolute Value Cancelled HCG Absolute Value Cancelled HCG Adjusted MoM Cancelled Dimeric Inhibin A MoM Cancelled Down Mat Age Risk (1 in Cancelled Down's 2nd Trimestr Risk Cancelled Trisomy 18 Age Risk Cancelled Trisomy 18 Increas Risk Cancelled Spina Bifida Risk (1 in Cancelled 02/22/18 02/22/18 02/22/18 07:00 07:00 07:00 WBC 7.8 RBC 4.41 Hgb 12.8 Hct 37.5 MCV 85.2 MCH 29.0 MCHC 34.0 RDW 14.5 Plt Count 106 L MPV 9.0 PT with INR 13.40 H INR 1.19 H PTT (Actin FS) 30.7 Sodium 137 Potassium 4.3 Chloride 108 H Carbon Dioxide 23 Anion Gap 6 L BUN 22 H Creatinine 1.2 Creat Clearance w eGFR > 60 POC Glucometer Random Glucose 117 H Calcium 7.8 L Total Bilirubin 0.5 AST 17 ALT 23 Alkaline Phosphatase 146 H Total Protein 5.7 L Albumin 3.0 L Tumor Marker AFP Carcinoembryonic Ag CA 125 Antigen Gestational Age Maternl Age at Due Date Maternal Race Maternal Weight Insulin Depend Diabetes Multiple AFP Triple Screen Note AFP Triple Scrn Commnt AFP Absolute Value HCG Absolute Value HCG Adjusted MoM Dimeric Inhibin A MoM Down Mat Age Risk (1 in Down's 2nd Trimestr Risk Trisomy 18 Age Risk Trisomy 18 Increas Risk Spina Bifida Risk (1 in 02/22/18 16:34 WBC RBC Hgb Hct MCV MCH MCHC RDW Plt Count MPV PT with INR INR PTT (Actin FS) Sodium Potassium Chloride Carbon Dioxide Anion Gap BUN Creatinine Creat Clearance w eGFR POC Glucometer 139 Random Glucose Calcium Total Bilirubin AST ALT Alkaline Phosphatase Total Protein Albumin Tumor Marker AFP Carcinoembryonic Ag CA 125 Antigen Gestational Age Maternl Age at Due Date Maternal Race Maternal Weight Insulin Depend Diabetes Multiple AFP Triple Screen Note AFP Triple Scrn Commnt AFP Absolute Value HCG Absolute Value HCG Adjusted MoM Dimeric Inhibin A MoM Down Mat Age Risk (1 in Down's 2nd Trimestr Risk Trisomy 18 Age Risk Trisomy 18 Increas Risk Spina Bifida Risk (1 in Active Medications Generic Name Dose Route Start Last Admin Trade Name Freq PRN Reason Stop Dose Admin Enoxaparin Sodium 40 mg 02/21/18 17:45 02/22/18 09:42 Lovenox - SQ 40 mg DAILY ZENY Administration Sodium Chloride 1,000 mls @ 42 mls/hr 02/20/18 14:45 02/21/18 18:32 Normal Saline - IV 42 mls/hr ASDIR ZENY Administration Insulin Detemir 10 units 02/20/18 22:00 02/21/18 21:46 Levemir Vial SQ 10 unit HS ZENY Administration Lisinopril 5 mg 02/21/18 10:00 02/22/18 09:46 Prinivil PO 5 mg DAILY ZENY Administration Metoprolol Succinate 50 mg 02/21/18 10:00 02/22/18 09:46 Toprol Xl - PO 50 mg DAILY ZENY Administration Tramadol HCl 50 mg 02/21/18 22:00 02/22/18 09:43 Ultram - PO 02/25/18 23:59 Not Given BID ZENY ASSESSMENT/PLAN: 67M with findings of mass in tail of pancreas about 4 cm and multiple lesions in liver with max size of 6.8 with elevated ca 19-9 suggest he might have Ca. pancreas with metastatic disease. Patient needs to have liver biopsy for which we will hold his aspirin and start him on lovenox for dvt prophylaxis. CA 19-9 elevated ( 20025), CEA 13. Discussed with Dr. Hansen. He advised that patient needs to be off from aspirin for 5-7 days before liver biopsy. MRI pending Consider opthalmology consult for loss of vision in eye. GI follow up. Visit type - Emergency Visit Emergency Visit: Yes ED Registration Date: 02/20/18 Care time: The patient presented to the Emergency Department on the above date and was hospitalized for further evaluation of their emergent condition. - New Patient This patient is new to me today: No - Critical Care Critical Care patient: No
--- NOTE | 2018-02-22 19:33 | PN ---
Teaching Attending Note Name of Resident: Alfredito Brady ATTENDING PHYSICIAN STATEMENT I saw and evaluated the patient. I reviewed the resident's note and discussed the case with the resident. I agree with the resident's findings and plan as documented. SUBJECTIVE: OBJECTIVE: ASSESSMENT AND PLAN:Pancreatic tail mass , liver masses, elevated Ca-19.9 all suggest pancreatic ca with liver mets. Unable to negotiate MRI . Liver biopsy more relevent for diagnosis. Will have biopsy when off ASA 5-7 days. Awaiting opthalmology.
[2018-02-22] MEDS: SODIUM CHLORIDE 1,000 ML IV SCH (20:53)
[2018-02-22] MEDS: INSULIN (LEVEMIR) 100 UNITS/ML UNITS SQ SCH (21:04)
--- NOTE | 2018-02-22 22:46 | PN ---
Progress Note, Physician Chief Complaint: less ruq pain tolerating diet vss nl bms plan bx liver when asa wheres off ophtho to see pt - Current Medication List Current Medications: Active Medications Enoxaparin Sodium (Lovenox -) 40 mg SQ DAILY [facility] Last Admin: 02/22/18 09:42 Dose: 40 mg Sodium Chloride (Normal Saline -) 1,000 mls @ 42 mls/hr IV ASDIR [facility] Last Admin: 02/22/18 20:53 Dose: Not Given Insulin Detemir (Levemir Vial) 10 units SQ HS [facility] Last Admin: 02/22/18 21:04 Dose: 10 unit Lisinopril (Prinivil) 5 mg PO DAILY [facility] Last Admin: 02/22/18 09:46 Dose: 5 mg Metoprolol Succinate (Toprol Xl -) 50 mg PO DAILY [facility] Last Admin: 02/22/18 09:46 Dose: 50 mg Tramadol HCl (Ultram -) 50 mg PO BID [facility] Stop: 02/25/18 23:59 Last Admin: 02/22/18 21:05 Dose: 50 mg - Objective Vital Signs: Vital Signs Temperature 99.2 F 02/22/18 20:33 Pulse Rate 73 02/22/18 20:33 Respiratory Rate 18 02/22/18 20:38 Blood Pressure 145/82 02/22/18 20:33 O2 Sat by Pulse Oximetry (%) 100 02/22/18 20:38 Labs: CBC, BMP 02/22/18 07:00 02/22/18 07:00 INR, PTT INR 1.19 (0.83-1.09) H 02/22/18 07:00 Problem List - Problems (1) Gallstone Code(s): K80.20 - CALCULUS OF GALLBLADDER W/O CHOLECYSTITIS W/O OBSTRUCTION (2) HTN (hypertension) Code(s): I10 - ESSENTIAL (PRIMARY) HYPERTENSION (3) Diabetes 1.5, managed as type 2 Code(s): E10.9 - TYPE 1 DIABETES MELLITUS WITHOUT COMPLICATIONS (4) CRF (chronic renal failure) Code(s): N18.9 - CHRONIC KIDNEY DISEASE, UNSPECIFIED (5) Thrombocytopenia Code(s): D69.6 - THROMBOCYTOPENIA, UNSPECIFIED
[2018-02-23] MEDS: SODIUM CHLORIDE 1,000 ML IV SCH (05:43)
[2018-02-23 07:07] LABS: HEMOGLOBIN 12.9 GM/dL (11.7-16.9); MCH 28.8 pg (25.7-33.7); MCHC 33.9 g/dl (32.0-35.9); MEAN CELL VOLUME 84.9 fl (80-96); MEAN PLT VOLUME 8.8 fl (7.5-11.1); PLATELET COUNT 115 K/MM3 (134-434); RBC 4.47 M/mm3 (4.00-5.60); RDW 14.7 % (11.9-15.9)
[2018-02-23 07:27] LABS: CHLORIDE 107 mmol/L (98-107); POTASSIUM 4.3 mmol/L (3.5-5.1); SODIUM 140 mmol/L (136-145)
[2018-02-23 07:43] LABS: ALBUMIN 3.2 g/dl (3.4-5.0); ALK PHOS 149 U/L (45-117); ANION GAP 12 (8-16); BILIRUBIN,TOTAL 0.5 mg/dL (0.2-1.0); BLOOD UREA NITROGEN 21 mg/dL (7-18); CALCIUM 8.2 mg/dL (8.5-10.1); CO2 21 mmol/L (21-32); CREATININE 1.2 mg/dL (0.7-1.3); GLUCOSE,RANDOM 111 mg/dL (74-106); SGOT/AST 19 U/L (15-37); SGPT/ALT 21 U/L (12-78); TOT PROT 5.9 g/dl (6.4-8.2)
[2018-02-23] MEDS: traMADol HCL 50 MG TABLET PO SCH (09:31)
[2018-02-23] MEDS: ENOXAPARIN NA (PORCINE) 40 MG/0.4 ML DISP.SYRIN SQ SCH (09:31)
[2018-02-23] MEDS: LISINOPRIL 5 MG TABLET (FP) PO SCH (09:32)
[2018-02-23 09:45] VITALS: BP 128/82; PULSE 74; TEMP 98.7
--- NOTE | 2018-02-23 10:16 | DS ---
Physical Examination Vital Signs: Vital Signs Temperature 98.7 F 02/23/18 09:44 Pulse Rate 74 02/23/18 09:44 Respiratory Rate 18 02/23/18 09:44 Blood Pressure 128/82 02/23/18 09:44 O2 Sat by Pulse Oximetry (%) 100 02/22/18 20:38 Constitutional: Yes: Well Nourished Eyes: Yes: WNL, Cataracts HENT: Yes: WNL Neck: Yes: WNL Cardiovascular: Yes: WNL Respiratory: Yes: WNL Gastrointestinal: Yes: Tenderness, Rebound ...Rectal Exam: Yes: Deferred Renal/: Yes: WNL Breast(s): Yes: WNL Musculoskeletal: Yes: WNL Neurological: Yes: WNL ...Motor Strength: WNL Psychiatric: Yes: WNL Labs: CBC, BMP 02/23/18 06:15 02/23/18 06:15 Discharge Summary Reason For Visit: LIVER MASS Current Active Problems Abnormal abdominal CT scan (Acute) CRF (chronic renal failure) (Acute) Diabetes 1.5, managed as type 2 (Acute) Epigastric abdominal pain (Acute) Gallstone (Acute) HTN (hypertension) (Acute) Liver mass (Acute) Pancreatic mass (Acute) Renal calculi (Acute) Thrombocytopenia (Acute) Condition: Stable - Instructions Diet, Activity, Other Instructions: liver bx outpt w dr estrada he will schedukle pt cont all meds at home only new med tramadol i gave him Referrals: Erick Rhodes MD [Primary Care Provider] - Disposition: HOME - Home Medications Comprehensive Discharge Medication List: Ambulatory Orders Insulin (Levemir) [Levemir Vial] 10 unit SQ DAILY 02/20/18 Metoprolol Succinate [Toprol Xl] 50 mg PO HS 02/20/18
== END 2018-02-23 14:26 | disposition home or self-care (01) | DRG 375 ==
LOC: JER 09:05 → JERBED 09:41 → J7W 02-21 00:40
PROVIDERS: ADMIT Family Medicine; ATTEND Family Medicine
DX: D37.8 Neoplasm of uncertain behavior of other specified digestive organs (principal); D37.6 Neoplasm of uncertain behavior of liver, gallbladder and bile ducts; I12.9 Hypertensive chronic kidney disease with stage 1 through stage 4 chronic kidney disease, or unspecified chronic kidney disease; Z68.41 Body mass index [BMI] 40.0-44.9, adult; E66.01 Morbid (severe) obesity due to excess calories; E11.22 Type 2 diabetes mellitus with diabetic chronic kidney disease; N18.9 Chronic kidney disease, unspecified; K59.00 Constipation, unspecified; Z87.891 Personal history of nicotine dependence; E86.0 Dehydration; K57.30 Diverticulosis of large intestine without perforation or abscess without bleeding; D69.6 Thrombocytopenia, unspecified; H02.401 Unspecified ptosis of right eyelid; R16.0 Hepatomegaly, not elsewhere classified; N20.0 Calculus of kidney; Z79.4 Long term (current) use of insulin
CPT/HCPCS: 36415; 70450-TC; 71250-TC; 74176-TC; 80053; 81003; 81015; 82105; 82378; 82550; 82962; 83605; 83690; 83735; 84100; 84484; 85025; 85027; 85610; 85651; 85730; 86140; 86301; 86304; 87040; 87086; 87186; 93005; 93010; 93306-TC; 99283-25; J7030

== ENCOUNTER 2018-03-02 07:17 | Observation (INO) | payer OTHER ==
[2018-03-01 15:50] VITALS: BMI 40.6
[2018-03-02 07:31] LABS: BASO % 0.4 % (0-2.0); EOS % 1.2 % (0-4.5); HEMATOCRIT 42.2 % (35.4-49); HEMOGLOBIN 13.9 GM/dL (11.7-16.9); LYMPH % 7.2 % (8-40); MCH 27.8 pg (25.7-33.7); MCHC 33.1 g/dl (32.0-35.9); MONO % 9.1 % (3.8-10.2); NEUT % 82.1 % (42.8-82.8); PLATELET COUNT 166 K/MM3 (134-434); RBC 5.02 M/mm3 (4.00-5.60); RDW 14.7 % (11.9-15.9); WHITE BLOOD COUNT 15.3 K/mm3 (4.0-10.0)
[2018-03-02 07:42] LABS: INR 1.31 (0.83-1.09); PROTHROMBIN TIME (PATIENT) 14.8 SEC (9.7-13.0)
[2018-03-02] MEDS ORDERED: PHYTONADIONE 10 MG/1 ML AMP IVPB ONE (11:23)
[2018-03-02 12:52] LABS: PERITONEAL RBC 3423 /mm3
[2018-03-02 12:57] LABS: TOTAL PROTEIN,PERITONEAL FLUID 4 gm/dL
[2018-03-02 14:27] LABS: PERITONEAL FLUID BASOPHIL 1 %; PERITONEAL FLUID EOSINOPHIL 1 %; PERITONEAL FLUID LYMPHOCYTE 24 %; PERITONEAL FLUID MESOTHELIAL 2 %; PERITONEAL FLUID MONOCYTE 10 %; PERITONEAL FLUID NEUTROPHIL 40 %
[2018-03-02 14:28] LABS: PERITONEAL FLUID MACROPHAGE 22 %
--- NOTE | 2018-03-02 15:48 | CON.GI ---
Consult Consult Specialty:: GI Reason for Consultation:: s/p liver biopsy and paracentesis today - History of Present Illness History of Present Illness: The pt is known to have a pancreatic mass with CA 19-9 31995 and CEA 13. He was admitted after paracentesis and liver biopsy today. Reports feeling significant abdominal discomfort and distension prior to the paracentesis. No complaints post procedures, feeling better after 3.7L of abdominal fluid removed. Noted to have leukocytosis 15K, Cell count revealed 50451 WBC, 3400RBC , 40 neutrophils. Albumin 2, No serum albumin drawn yet. - History Source History Provided By: Patient, Medical Record - Past Medical History Cardio/Vascular: Yes: HTN Gastrointestinal: Yes: Diverticulosis, Other (gall stones) Renal/: Yes: Renal Inusuff Musculoskeletal: Yes: Other (lt leg phlebitis tx already) Endocrine: Yes: Diabetes Mellitus - Past Surgical History Past Surgical History: Yes: None (rt ing hernia lt knee sx) - Alcohol/Substance Use Hx Alcohol Use: Yes (wine daily) - Smoking History Smoking history: Former smoker Have you smoked in the past 12 months: No If you are a former smoker, when did you quit?: 20yrs ago - Social History ADL: Independent History of Recent Travel: No Home Medications - Allergies Allergies/Adverse Reactions: Allergies Allergy/AdvReac Type Severity Reaction Status Date / Time No Known Drug Allergies Allergy Verified 02/20/18 09:28 - Home Medications Home Medications: Ambulatory Orders Insulin (Levemir) [Levemir Vial] 10 unit SQ DAILY 02/20/18 Metoprolol Succinate [Toprol Xl] 50 mg PO HS 02/20/18 Aspirin Coated [Ecotrin -] 81 mg PO DAILY 03/02/18 Family Disease History - Family Disease History Family History: Unremarkable Review of Systems Findings/Remarks: as per HPI, H&P Physical Exam-GI Vital Signs: Vital Signs Temperature 98.1 F 03/02/18 15:01 Pulse Rate 82 03/02/18 15:01 Respiratory Rate 16 03/02/18 15:01 Blood Pressure 118/74 03/02/18 15:01 O2 Sat by Pulse Oximetry (%) 95 03/02/18 12:15 Constitutional: Yes: Well Nourished, No Distress, Calm, Pallor Eyes: Yes: Conjunctiva Clear. No: Sclera Icterus HENT: Yes: Atraumatic Neck: Yes: Supple Cardiovascular: Yes: Regular Rate and Rhythm Respiratory: Yes: Regular, CTA Bilaterally Gastrointestinal Inspection: Yes: Distention ...Palpate: Yes: Soft. No: Firm/Rigid, Guarding, Tenderness, Tenderness, Epigastium, Tenderness, Rebound ...Percussion: Yes: Other (paracentesis and liver biopsy sites dressed with clean, dry gouses) Neurological: Yes: Alert, Oriented Labs: CBC, BMP 03/02/18 07:20 INR, PTT INR 1.31 (0.83-1.09) H 03/02/18 07:20 Laboratory Last Values WBC 15.3 K/mm3 (4.0-10.0) H 03/02/18 07:20 RBC 5.02 M/mm3 (4.00-5.60) 03/02/18 07:20 Hgb 13.9 GM/dL (11.7-16.9) 03/02/18 07:20 Hct 42.2 % (35.4-49) 03/02/18 07:20 MCV 84.0 fl (80-96) 03/02/18 07:20 MCH 27.8 pg (25.7-33.7) 03/02/18 07:20 MCHC 33.1 g/dl (32.0-35.9) 03/02/18 07:20 RDW 14.7 % (11.9-15.9) 03/02/18 07:20 Plt Count 166 K/MM3 (134-434) D 03/02/18 07:20 MPV 8.0 fl (7.5-11.1) 03/02/18 07:20 Absolute Neuts (auto) 12.6 K/mm3 (1.5-8.0) H 03/02/18 07:20 Neutrophils % 82.1 % (42.8-82.8) 03/02/18 07:20 Lymphocytes % 7.2 % (8-40) L D 03/02/18 07:20 Monocytes % 9.1 % (3.8-10.2) 03/02/18 07:20 Eosinophils % 1.2 % (0-4.5) 03/02/18 07:20 Basophils % 0.4 % (0-2.0) 03/02/18 07:20 Nucleated RBC % 0 % (0-0) 03/02/18 07:20 PT with INR 14.80 SEC (9.7-13.0) H 03/02/18 07:20 INR 1.31 (0.83-1.09) H 03/02/18 07:20 POC Glucometer 165 UNITS (80-120) 03/02/18 13:03 Peritoneal WBC 2917 /mm3 03/02/18 10:50 Peritoneal RBC 3423 /mm3 03/02/18 10:50 Periton Neutrophils 40 % 03/02/18 10:50 Periton Lymphocytes 24 % 03/02/18 10:50 Peritoneal Monocytes 10 % 03/02/18 10:50 Peritoneal Eosinophils 1 % 03/02/18 10:50 Peritoneal Basophils 1 % 03/02/18 10:50 Periton Mesothelial 2 % 03/02/18 10:50 Periton Macrophages 22 % 03/02/18 10:50 Peritoneal Tot Protein 4 gm/dL 03/02/18 10:50 Peritoneal Albumin 2 g/dL 03/02/18 10:50 Peritoneal LDH 253 IU/L 03/02/18 10:50 Peritoneal Glucose 139 mg/dL 03/02/18 10:50 Peritoneal Amylase 10 U/L 03/02/18 10:50 Peritoneal Triglycerid 42 mg/dL 03/02/18 10:50 Blood Type O POSITIVE 03/02/18 12:15 Antibody Screen Negative 03/02/18 12:15 Problem List - Problems (1) Liver mass Code(s): R16.0 - HEPATOMEGALY, NOT ELSEWHERE CLASSIFIED (2) Pancreatic mass Code(s): K86.9 - DISEASE OF PANCREAS, UNSPECIFIED Assessment/Plan A 67M with tail of the pancrease mass and liver lesions suspected to be metastatic. S/p liver lesions biopsy today. Has leukocytosis, but otherwise at baseline. Recommend: Empiric Ofloxacin and flagyl, CMP/Albumin now. Repeat CBC in am. Normal diet. Observe while awaiting for cytology, and histology.
--- NOTE | 2018-03-02 16:10 | HP ---
Admitting History and Physical - Admission Chief Complaint: abd girth increased. abd pain scale 7 n/c. pt releaed hosp ins wouid not pay for stay for liver bx stated woiud be done outpt increasing ascites admitted to watch for bleed post bx liver. asa held 7 days History Source: Patient - Past Medical History Cardiovascular: Yes: HTN Gastrointestinal: Yes: Diverticulosis, Other (gall stones) Renal/: Yes: Renal Inusuff Musculoskeletal: Yes: Other (lt leg phlebitis tx already) Endocrine: Yes: Diabetes Mellitus - Past Surgical History Past Surgical History: Yes: None (rt ing hernia lt knee sx) - Smoking History Smoking history: Former smoker Have you smoked in the past 12 months: No If you are a former smoker, when did you quit?: 20yrs ago - Alcohol/Substance Use Hx Alcohol Use: Yes (wine daily) - Social History ADL: Independent History of Recent Travel: No Home Medications - Allergies Allergies/Adverse Reactions: Allergies Allergy/AdvReac Type Severity Reaction Status Date / Time No Known Drug Allergies Allergy Verified 02/20/18 09:28 - Home Medications Home Medications: Ambulatory Orders Insulin (Levemir) [Levemir Vial] 10 unit SQ DAILY 02/20/18 Metoprolol Succinate [Toprol Xl] 50 mg PO HS 02/20/18 Aspirin Coated [Ecotrin -] 81 mg PO DAILY 03/02/18 Family Disease History - Family Disease History Family History: Unremarkable Review of Systems - Review of Systems Gastrointestinal: reports: Abdominal Pain Physical Examination Vital Signs: Vital Signs Temperature 98.1 F 03/02/18 15:01 Pulse Rate 82 03/02/18 15:01 Respiratory Rate 16 03/02/18 15:01 Blood Pressure 118/74 03/02/18 15:01 O2 Sat by Pulse Oximetry (%) 95 03/02/18 12:15 Gastrointestinal: Yes: Tenderness Labs: CBC, BMP 03/02/18 07:20 Assessment/Plan liver bx to be chked po atxb a sugeted by gi
[2018-03-02 18:30] LABS: ALBUMIN 2.5 g/dl (3.4-5.0); ALK PHOS 149 U/L (45-117); ANION GAP 12 MMOL/L (8-16); BILIRUBIN,TOTAL 0.7 mg/dL (0.2-1.0); BLOOD UREA NITROGEN 51 mg/dL (7-18); CALCIUM 8.2 mg/dL (8.5-10.1); CHLORIDE 101 mmol/L (98-107); CO2 24 mmol/L (21-32); CREATININE 2.2 mg/dL (0.7-1.3); GLUCOSE,RANDOM 191 mg/dL (74-106); POTASSIUM 4.9 mmol/L (3.5-5.1); SGOT/AST 15 U/L (15-37); SGPT/ALT 17 U/L (12-78); SODIUM 137 mmol/L (136-145); TOT PROT 5.2 g/dl (6.4-8.2)
[2018-03-02] MEDS: INSULIN SLIDING SCALE (NOVOLOG) 1 VIAL SQ SCH (18:51)
[2018-03-02] MEDS ORDERED: INSULIN (LEVEMIR) 100 UNITS/ML UNITS SQ SCH (22:00)
[2018-03-02] MEDS ORDERED: traMADol HCL 50 MG TABLET PO SCH (22:00)
[2018-03-03] MEDS: INSULIN SLIDING SCALE (NOVOLOG) 1 VIAL SQ SCH (06:06)
[2018-03-03 08:18] LABS: BASO % 0.3 % (0-2.0); EOS % 1.3 % (0-4.5); HEMATOCRIT 39.9 % (35.4-49); HEMOGLOBIN 13.2 GM/dL (11.7-16.9); LYMPH % 8.5 % (8-40); MCH 27.6 pg (25.7-33.7); MCHC 33.1 g/dl (32.0-35.9); MEAN CELL VOLUME 83.6 fl (80-96); MEAN PLT VOLUME 8.2 fl (7.5-11.1); MONO % 10.2 % (3.8-10.2); NEUT % 79.7 % (42.8-82.8); PLATELET COUNT 128 K/MM3 (134-434); RBC 4.77 M/mm3 (4.00-5.60); RDW 14.7 % (11.9-15.9); WHITE BLOOD COUNT 11.2 K/mm3 (4.0-10.0)
[2018-03-03 09:16] LABS: ALBUMIN 2.6 g/dl (3.4-5.0); ANION GAP 9 MMOL/L (8-16); BLOOD UREA NITROGEN 52 mg/dL (7-18); CALCIUM 8.3 mg/dL (8.5-10.1); CHLORIDE 102 mmol/L (98-107); CO2 25 mmol/L (21-32); GLUCOSE,RANDOM 133 mg/dL (74-106); POTASSIUM 5.1 mmol/L (3.5-5.1); SGOT/AST 22 U/L (15-37); SGPT/ALT 19 U/L (12-78); SODIUM 136 mmol/L (136-145)
[2018-03-03 09:19] LABS: ALK PHOS 185 U/L (45-117); BILIRUBIN,TOTAL 0.6 mg/dL (0.2-1.0); TOT PROT 5.5 g/dl (6.4-8.2)
[2018-03-03 09:28] LABS: INR 1.26 (0.83-1.09); PROTHROMBIN TIME (PATIENT) 14.2 SEC (9.7-13.0)
--- NOTE | 2018-03-03 09:38 | DS ---
Physical Examination Vital Signs: Vital Signs Temperature 99 F 03/03/18 06:00 Pulse Rate 87 03/03/18 06:00 Respiratory Rate 18 03/03/18 06:00 Blood Pressure 135/81 03/03/18 06:00 O2 Sat by Pulse Oximetry (%) 97 03/02/18 21:00 Constitutional: Yes: Well Nourished Eyes: Yes: WNL HENT: Yes: WNL Neck: Yes: WNL Cardiovascular: Yes: WNL Respiratory: Yes: WNL Gastrointestinal: Yes: Tenderness, Epigastrium ...Rectal Exam: Yes: Deferred Renal/: Yes: WNL Breast(s): Yes: WNL Musculoskeletal: Yes: WNL Extremities: Yes: WNL Edema: No Peripheral Pulses WNL: Yes Integumentary: Yes: WNL Neurological: Yes: WNL ...Motor Strength: WNL Psychiatric: Yes: WNL Labs: CBC, BMP 03/03/18 06:00 03/03/18 06:00 Discharge Summary Reason For Visit: LIVER MASSES Condition: Fair - Instructions Diet, Activity, Other Instructions: appt with me tuesday 200 pm cont all meds as is Disposition: HOME - Home Medications Comprehensive Discharge Medication List: Ambulatory Orders Insulin (Levemir) [Levemir Vial] 10 unit SQ DAILY 02/20/18 Metoprolol Succinate [Toprol Xl] 50 mg PO HS 02/20/18 Aspirin Coated [Ecotrin -] 81 mg PO DAILY 03/02/18
[2018-03-03] MEDS ORDERED: LISINOPRIL 5 MG TABLET (FP) PO SCH (10:00)
[2018-03-03 10:56] VITALS: BP 115/73; PULSE 95; TEMP 98.1
--- NOTE | 2018-03-03 16:45 | PATH ---
Surgical Pathology Report Patient Name: DOMENICA ADAMS Med. Rec. #: [id number] /Age/Gender: 1950 (Age: 67) / M Account: [id number] Location: [facility] MED/SURG Taken: 03/02/2018 Received: 03/02/2018 Reported: 03/03/2018 Physicians: Erick Rhodes M.D. Specimen(s) Received LIVER BIOPSY Clinical History Pancreatic mass with liver metastases Final Diagnosis LIVER, BIOPSY: INVASIVE ADENOCARCINOMA, MODERATELY DIFFERENTIATED. SEE COMMENT. Comment: Immunohistochemical stains performed and interpreted at [facility] show the tumor is positive for AE1/3, CK7, and CK20. This immunophenotype is non-specific. Given the clinical findings of a pancreatic mass, overall morphology and immunophenotype are compatible with pancreaticobiliary origin. Suggest clinical and radiological correlation. Case shown interdepartmentally. See concurrent cytology ([id number]). Findings discussed with Dr. Rhodes. Electronically Signed Sayra Smith M.D. Gross Description Received in formalin labeled "liver biopsy," is a 0.5 x 0.4 x 0.1 cm aggregate of quevedo, cylindrical to fragmented portions of soft tissue. The formalin is filtered and the specimen is entirely submitted in one cassette. /03/02/201803/02/2018
--- NOTE | 2018-03-06 14:32 | PATH ---
Cytology Non-Gynecological Report Patient Name: DOMENICA ADAMS Med. Rec. #: [id number] /Age/Gender: 1950 (Age: 67) / M Account: [id number] Location: [facility] MED/SURG Taken: 03/02/2018 Received: 03/02/2018 Reported: 03/06/2018 Physicians: Adilia Mukherjee M.D. Specimen(s) Received PERITONEAL FLUID Clinical History Ascites Final Diagnosis PERITONEAL FLUID, PARACENTESIS: SATISFACTORY FOR EVALUATION. MALIGNANT CELLS IDENTIFIED. CONSISTENT WITH METASTATIC ADENOCARCINOMA. Comment: Clusters of atypical cells showing enlarged, eccentrically located nuclei with hyperchromasia and irregular nuclei membranes. Immunohistochemistry stains (performed at [facility] [id number] and interpreted at [facility]) done on the cell block show these cells are negative for mesothelial markers D2-40, Calretinin, while positive for EDWARDO, Vicente-ep4, and MOC31. This immunoprofile is consistent with an adenocarcinoma. Also see concurrent liver biopsy pathology report [id number]. Electronically Signed Bea Newton M.D. Gross Description Approximately 50cc of yellow fluid received fixed in 50% alcohol. One cytofunnel and one cellblock prepared.
== END 2018-03-03 11:21 | disposition home or self-care (01) ==
LOC: JRADIR 07:17 → UNDOADMOB 10:47 → JRADIR 10:47 → INTOOBSV 10:47 → J8W 10:47
PROVIDERS: ADMIT Family Medicine; ATTEND Family Medicine
PROC: 0W9G3ZX Drainage of Peritoneal Cavity, Percutaneous Approach, Diagnostic (ICD-10-PCS; principal; 2018-03-02)
PROC: 0FB23ZX Excision of Left Lobe Liver, Percutaneous Approach, Diagnostic (ICD-10-PCS; 2018-03-02)
PROC: 3E033GC Introduction of Other Therapeutic Substance into Peripheral Vein, Percutaneous Approach (ICD-10-PCS; 2018-03-02)
PROC: 3E013VG Introduction of Insulin into Subcutaneous Tissue, Percutaneous Approach (ICD-10-PCS; 2018-03-02)
DX: C78.7 Secondary malignant neoplasm of liver and intrahepatic bile duct (principal); R18.8 Other ascites; K86.9 Disease of pancreas, unspecified; I10 Essential (primary) hypertension; E11.9 Type 2 diabetes mellitus without complications; D72.829 Elevated white blood cell count, unspecified; N28.9 Disorder of kidney and ureter, unspecified; R16.0 Hepatomegaly, not elsewhere classified; Z79.82 Long term (current) use of aspirin; Z79.4 Long term (current) use of insulin; Z87.891 Personal history of nicotine dependence
CPT/HCPCS: 36415; 47000; 49083; 80053; 82042; 82150; 82945; 82962; 83615; 84157; 84478; 85025; 85610; 86850; 86900; 86901; 87040; 87070; 87075; 87102; 87116; 87205; 87206; 87210; 87899; 88108; 88305-TC; 88307-TC; 88341-TC; 89051; 96372; 96374; G0378

== ENCOUNTER → 2018-03-10 | Day surgery (SDC) | payer OTHER | END | disposition home or self-care (01) | LOC: JRADIR 09:57 | PROVIDERS: ATTEND Family Medicine | PROC: 0W9G3ZZ Drainage of Peritoneal Cavity, Percutaneous Approach (ICD-10-PCS; principal; 2018-03-10) | DX: R18.8 Other ascites (principal) | CPT/HCPCS: 76942-TC ==

== ENCOUNTER 2018-03-12 11:40 | Inpatient (IN) | payer OTHER ==
[2018-03-12 11:52] VITALS: BMI 40.0
[2018-03-12] MEDS ORDERED: SODIUM CHLORIDE 1,000 ML IV SCH (12:30)
[2018-03-12] MEDS ORDERED: ONDANSETRON 4 MG/2 ML VIAL IVPB ONE (12:30)
[2018-03-12] MEDS ORDERED: morphine CARPU-JECT 4 MG/1 ML DISP.SYRIN IVPUSH ONE ×3 (12:42→18:00)
--- NOTE | 2018-03-12 13:28 | PDOC ---
History of Present Illness - General History Source: Patient, Family, Old Records Exam Limitations: No Limitations - History of Present Illness Initial Comments: 03/12/18 13:39 Patient is a 67 year old male with a significant past medical history of HTN, Diverticulosis, Renal Insufficiency, DM, who presents to the ED with complaints of urinary retention that began earlier this week. Patient reports experiencing urinary retention as well as associated symptoms of nausea, and constipation, that he believes to be secondary to obstruction. He reports having CT test done earlier this week after having x2 paracentesis procedures done, which showed abdominal mass. Patient reports PCP referred him to oncologist, stating he scheduled an appointment with Dr. De Leon for Tuesday03/12/2018. As per patient' s daughter, patient's symptoms began to increase in intensity prompting her to bring him into the ED for further evaluation and treatment. Patient reports experiencing decreased appetite and decreased fluid intake secondary to constipation. Denies chest pain, Sob. Denies vomiting. Denies contact with sick individuals, out of state travelling. Denies fevers, chills. Denies any other symptoms. Allergies: None Social history: Former smoker (Last 20 years). No alcohol. No illicit drugs. Surgical history: Right inguinal hernia, Left knee surgery. PMD: Dr. Erick Rhodes <Ronn Oneil - Last Filed: 03/12/18 13:39> <Kerwin Gilbert - Last Filed: 03/12/18 19:38> <Vivek Tomas - Last Filed: 03/12/18 23:07> - General Chief Complaint: Urinary Problem Stated Complaint: PAIN, URINARY PROBLEM Time Seen by Provider: 03/12/18 12:19 Past History <Ronn Oneil - Last Filed: 03/12/18 13:39> - Past Medical History Cancer: Yes (pancreatic) COPD: No Diabetes: Yes GI Disorders: No Disorders: Yes (stones) HTN: Yes Hypercholesterolemia: Yes Thyroid Disease: No - Suicide/Smoking/Psychosocial Hx Smoking History: Never smoked Have you smoked in the past 12 months: No If you are a former smoker, when did you quit?: 20yrs ago Information on smoking cessation initiated: No Hx Alcohol Use: Yes (wine daily) Drug/Substance Use Hx: No Substance Use Type: Alcohol <Kerwin Gilbert - Last Filed: 03/12/18 19:38> <Vivek Tomas - Last Filed: 03/12/18 23:07> - Past Medical History Allergies/Adverse Reactions: Allergies Allergy/AdvReac Type Severity Reaction Status Date / Time No Known Drug Allergies Allergy Verified 03/12/18 11:52 Home Medications: Ambulatory Orders Insulin (Levemir) [Levemir Vial] 10 unit SQ DAILY 02/20/18 Metoprolol Succinate [Toprol Xl] 50 mg PO HS 02/20/18 Aspirin Coated [Ecotrin -] 81 mg PO DAILY 03/02/18 Review of Systems - Review of Systems Able to Perform ROS?: Yes Comments:: 03/12/18 13:40 GENERAL/CONSTITUTIONAL: No fever or chills. No weakness. HEAD, EYES, EARS, NOSE AND THROAT: No change in vision. No ear pain or discharge. No sore throat. CARDIOVASCULAR: No chest pain or shortness of breath. RESPIRATORY: No cough, wheezing, or hemoptysis. GASTROINTESTINAL: +constipation. +Nausea. No nausea, vomiting, diarrhea GENITOURINARY: +Urinary retention. No dysuria, frequency, MUSCULOSKELETAL: No joint or muscle swelling or pain. No neck or back pain. SKIN: No rash NEUROLOGIC: No headache, vertigo, loss of consciousness, or change in strength/ sensation. ENDOCRINE: No increased thirst. No abnormal weight change. HEMATOLOGIC/LYMPHATIC: No anemia, easy bleeding, or history of blood clots. ALLERGIC/IMMUNOLOGIC: No hives or skin allergy. <Ronn Oneil - Last Filed: 03/12/18 13:39> *Physical Exam - Vital Signs Last Vital Signs Temp Pulse Resp BP Pulse Ox 97 F L 88 18 142/97 95 03/12/18 11:49 03/12/18 11:49 03/12/18 11:49 03/12/18 11:49 03/12/18 11:49 - Physical Exam Comments: 03/12/18 13:40 GENERAL: Awake, alert, and fully oriented, in no acute distress HEAD: No signs of trauma EYES: PERRLA, EOMI, sclera anicteric, conjunctiva clear ENT: +Dry mucous membranes. Auricles normal inspection, hearing grossly normal, nares patent, NECK: Normal ROM, supple, JVD, or masses LUNGS: Breath sounds equal, clear to auscultation bilaterally. No wheezes, and no crackles HEART: Regular rate and rhythm, normal S1 and S2, no murmurs, rubs or gallops ABDOMEN: Soft, nontender,No guarding, no rebound. No masses EXTREMITIES: Normal range of motion, no edema. No clubbing or cyanosis. No cords, erythema, or tenderness NEUROLOGICAL: Cranial nerves II through XII grossly intact. Normal speech, normal gait SKIN: Warm, Dry, normal turgor, no rashes or lesions noted. <Ronn Oneil - Last Filed: 03/12/18 13:39> - Vital Signs Last Vital Signs Temp Pulse Resp BP Pulse Ox 97 F L 88 18 142/97 95 03/12/18 11:49 03/12/18 11:49 03/12/18 11:49 03/12/18 11:49 03/12/18 11:49 <Kerwin Gilbert - Last Filed: 03/12/18 19:38> - Vital Signs Last Vital Signs Temp Pulse Resp BP Pulse Ox 97 F L 88 18 142/97 95 03/12/18 11:49 03/12/18 11:49 03/12/18 11:49 03/12/18 11:49 03/12/18 11:49 <Vivek Tomas - Last Filed: 03/12/18 23:07> Procedures - Central Line Central Line Lumen: trialysis Central Line Position: femoral (R) Anesthesia: 1% Lidocaine Amount of anesthesia (ccs): 5 Complications: two attempts Post Central Line Insertion: sutured, good blood return Progress: 03/12/18 23:07 Procedure tolerated with out significant complication. Two attempts. Good venous flow, done under ultrasound guidance. <Vivek Tomas - Last Filed: 03/12/18 23:07> Heart Score/ECG Review #1 ECG reviewed & interpreted by me at: 13:10 03/12/18 13:42 NSR 90, low voltage QRS, no std/migdalia, TWI III, poor R wave progression, Q wave V3 , QTC 415 msec <Kerwin Gilbert - Last Filed: 03/12/18 19:38> ED Treatment Course - LABORATORY CBC & Chemistry Diagram: 03/12/18 17:42 03/12/18 17:42 - RADIOLOGY Radiology Studies Ordered: Category Date Time Status ABDOMEN & PELVIS CT WITH CONTR [CT] Stat CT Scan 03/12/18 12:41 Ordered ABDOMEN US [US] Stat Ultrasound 03/12/18 12:41 Ordered <Dayan Gilbertel - Last Filed: 03/12/18 19:38> - LABORATORY CBC & Chemistry Diagram: 03/12/18 17:42 03/12/18 17:42 - ADDITIONAL ORDERS Additional order review: Laboratory Results 03/12/18 03/12/18 03/12/18 17:42 17:42 17:42 PT with INR 13.40 H INR 1.19 H PTT (Actin FS) 27.0 Sodium 124 L* Potassium 7.0 H* D Chloride 93 L D Carbon Dioxide 10 L Anion Gap 21 H BUN 133 H* Creatinine 10.8 H* Creat Clearance w eGFR 4.75 Random Glucose 255 H Lactic Acid 1.3 Calcium 7.7 L D Phosphorus 13.7 H* Magnesium 3.0 H Total Bilirubin 2.2 H AST 82 H ALT 42 Alkaline Phosphatase 252 H Creatine Kinase 33 L Troponin I < 0.02 Total Protein 5.3 L Albumin 2.0 L Lipase 03/12/18 14:29 PT with INR INR PTT (Actin FS) Sodium 117 L* D Potassium 21.7 H* D Chloride 84 L D Carbon Dioxide 11 L D Anion Gap 22 H BUN 135 H* D Creatinine 11.1 H* Creat Clearance w eGFR 4.61 Random Glucose 275 H D Lactic Acid Calcium < 5.0 L* D Phosphorus 14.5 H* D Magnesium 2.8 H D Total Bilirubin 2.5 H AST 88 H D ALT 47 D Alkaline Phosphatase 246 H D Creatine Kinase 46 Troponin I < 0.02 Total Protein 6.6 Albumin 2.4 L Lipase 215 03/12/18 17:42 RBC 5.50 MCV 85.1 MCHC 32.5 RDW 15.5 MPV 7.7 Neutrophils % 90.8 H Lymphocytes % 1.4 L D Monocytes % 7.4 Eosinophils % 0.0 D Basophils % 0.4 - Medications Given in the ED: ED Medications Discontinued Medications Generic Name Dose Route Start Last Admin Trade Name Freq PRN Reason Stop Dose Admin Morphine Sulfate 4 mg 03/12/18 12:42 03/12/18 14:21 Morphine Injection - IVPUSH 03/12/18 12:43 4 mg ONCE ONE Administration Morphine Sulfate 6 mg 03/12/18 13:33 03/12/18 14:00 Morphine Injection - IVPUSH 03/12/18 13:34 6 mg ONCE ONE Administration Morphine Sulfate 6 mg 03/12/18 18:00 03/12/18 18:15 Morphine Injection - IVPUSH 03/12/18 18:01 6 mg ONCE ONE Administration Ondansetron HCl 4 mg 03/12/18 12:30 03/12/18 14:21 Zofran Injection IVPB 03/12/18 12:31 4 mg ONCE ONE Administration <Vivek Tomas - Last Filed: 03/12/18 23:07> Medical Decision Making - Critical Care Time Total Critical Care Time (minutes): 45 Critical Care Statement: The care of this patient involved high complexity decision making to prevent further life threatening deterioration of the patient 's condition and/or to evaluate & treat vital organ system(s) failure or risk of failure. - Medical Decision Making 03/12/18 13:43 03/12/18 13:48 A portion of this note was written by my scribe, under my supervision. 67-year-old male with history of diabetes, kidney stones, hypertension, recently diagnosed metastatic pancreatic cancer presents with abdominal distention, difficulty moving bowels and urinating. The patient was recently admitted and worked up and diagnosed with pancreatic cancer. He is scheduled to undergo evaluation and chemotherapy at [facility] next week. The last several days, the patient has been endorsing increasing generalized abdominal distention and had a paracentesis performed by interventional radiologist, Dr. Sterling, with improvement of symptoms. However, since then, the patient has been endorsing increasing reaccumulation of ascites and now difficulty moving bowels and poor appetite. No fevers or chills. States chronic abdominal pain. Came into the ER for further evaluation. I discussed the case with patient's primary care physician, Dr. Erick Rhodes. This could be reoccurrence of ascities fluid reaccumulation, worsening tumor burden, bowel obstruction. Will work up with CT abdomen and pelvis, abdominal ultrasound and touch base with pt's PMD. 03/12/18 17:53 Pt initially had very abnormal CMP labs, which I suspect is an error. The patient was an incredibly difficult to obtain blood samples from. Multiple RNs, myself, attempted, even under ultrasound guidance. Obtain a Left hand 22 gauge and repeat blood work (which explains why delayed in reporting of results) . Pt ordered with CT abdomen and pelvis and ultrasound. 03/12/18 18:38 CBC, BMP 03/12/18 17:42 WBC 23.2 We should consider SBP as a possibility. Risks and benefits discussed with patient's family. If patient has ascites, the patient and family had consented for diagnostic paracentesis. Will cover with IV antibiotics vanc and zosyn. 03/12/18 19:16 CBC, BMP 03/12/18 17:42 03/12/18 17:42 CMP Sodium 124 mmol/L (136-145) L* 03/12/18 17:42 Potassium 7.0 mmol/L (3.5-5.1) H* D 03/12/18 17:42 Chloride 93 mmol/L (98-107) L D 03/12/18 17:42 Carbon Dioxide 10 mmol/L (21-32) L 03/12/18 17:42 Anion Gap 21 MMOL/L (8-16) H 03/12/18 17:42 BUN 133 mg/dL (7-18) H* 03/12/18 17:42 Creatinine 10.8 mg/dL (0.7-1.3) H* 03/12/18 17:42 Creat Clearance w eGFR 4.75 (>60) 03/12/18 17:42 Random Glucose 255 mg/dL (74-106) H 03/12/18 17:42 Lactic Acid 1.3 mmol/L (0.0-2.0) 03/12/18 17:42 Calcium 7.7 mg/dL (8.5-10.1) L D 03/12/18 17:42 Phosphorus 13.7 mg/dL (2.5-4.9) H* 03/12/18 17:42 Magnesium 3.0 mg/dL (1.8-2.4) H 03/12/18 17:42 Total Bilirubin 2.2 mg/dL (0.2-1.0) H 03/12/18 17:42 AST 82 U/L (15-37) H 03/12/18 17:42 ALT 42 U/L (12-78) 03/12/18 17:42 Alkaline Phosphatase 252 U/L (45-117) H 03/12/18 17:42 Creatine Kinase 33 IU/L (39-308) L 03/12/18 17:42 Troponin I < 0.02 ng/ml (0.00-0.05) 03/12/18 17:42 Total Protein 5.3 g/dl (6.4-8.2) L 03/12/18 17:42 Albumin 2.0 g/dl (3.4-5.0) L 03/12/18 17:42 Lipase 215 U/L (73-393) 03/12/18 14:29 Labs reviewed. Pt noted with acute kidney injury Cr 10. Hyponatremia, hyperkalemia (without hyperacute Hyper K changes). Noted to have elevated BUN. This patient likely with hepatorenal syndrome. Given concerns for SBP, pt consents for diagnostic paracentesis. Procedure performed by Dr. Ronald Tomas under my supervision. Under ultrasound guidance and sterile procedure, 60 cc of peritoneal fluid obtained. Will send for workup. Case discussed with Dr. Erick Rhodes. He accepts patient to his service. Requests Dr. Moura and Dr. Oswald for consultation. Will admit to ICU. Will order villaseñor catheter for renal failure. Admit. 03/12/18 19:[address] Nj Moura. He requests Villaseñor catheter. He will come in to evaluate patient. As of now, need to evaluate for obstruction prior to considering dialysis. <Kerwin Gilbert - Last Filed: 03/12/18 19:38> *DC/Admit/Observation/Transfer - Attestations Scribe Attestion: 03/12/18 13:40 Documentation prepared by Ronn Oneil, acting as medical billing supervisor for Kerwin Gilbert MD. <Ronn Oneil - Last Filed: 03/12/18 13:39> - Discharge Dispostion Decision to Admit order: Yes <Kerwin Gilbert - Last Filed: 03/12/18 19:38> <Vivek Tomas - Last Filed: 03/12/18 23:07> Diagnosis at time of Disposition: Pancreas cancer Qualifiers: Pancreatic malignancy location: unspecified Qualified Code(s): C25.9 - Malignant neoplasm of pancreas, unspecified Leukocytosis Qualifiers: Leukocytosis type: unspecified Qualified Code(s): D72.829 - Elevated white blood cell count, unspecified Acute renal failure Qualifiers: Acute renal failure type: unspecified Qualified Code(s): N17.9 - Acute kidney failure, unspecified - Discharge Dispostion Condition at time of disposition: Guarded
[2018-03-12] MEDS ORDERED: morphine SULFATE 4 MG/ML VIAL ONE ×2 (13:35→14:18)
[2018-03-12] MEDS ORDERED: MORPHINE SULFATE 2 MG/ML VIAL ONE (13:35)
[2018-03-12] MEDS ORDERED: ONDANSETRON 4 MG/2 ML VIAL ONE (14:18)
[2018-03-12 15:37] LABS: GLUCOSE,RANDOM 275 mg/dL (74-106)
[2018-03-12 15:38] LABS: ANION GAP 22 MMOL/L (8-16); CHLORIDE 84 mmol/L (98-107); CO2 11 mmol/L (21-32); LIPASE 215 U/L (73-393); MAGNESIUM 2.8 mg/dL (1.8-2.4)
[2018-03-12 15:39] LABS: ALBUMIN 2.4 g/dl (3.4-5.0); ALK PHOS 246 U/L (45-117); BILIRUBIN,TOTAL 2.5 mg/dL (0.2-1.0); SGOT/AST 88 U/L (15-37); SGPT/ALT 47 U/L (12-78); TOT PROT 6.6 g/dl (6.4-8.2)
[2018-03-12 15:41] LABS: POTASSIUM 21.7 mmol/L (3.5-5.1)
[2018-03-12 15:42] LABS: CALCIUM < 5.0 mg/dL (8.5-10.1); CREATININE 11.1 mg/dL (0.7-1.3); PHOSPHOROUS 14.5 mg/dL (2.5-4.9); SODIUM 117 mmol/L (136-145)
[2018-03-12 15:43] LABS: BLOOD UREA NITROGEN 135 mg/dL (7-18)
[2018-03-12] MEDS ORDERED: FAMOTIDINE 20 MG/50 ML IVPB 20 MG/50 ML MG IVPB ONE ×2 (18:00→19:37)
[2018-03-12 18:01] LABS: BASO % 0.4 % (0-2.0); HEMATOCRIT 46.8 % (35.4-49); HEMOGLOBIN 15.2 GM/dL (11.7-16.9); LYMPH % 1.4 % (8-40); MCH 27.6 pg (25.7-33.7); MCHC 32.5 g/dl (32.0-35.9); MEAN CELL VOLUME 85.1 fl (80-96); MEAN PLT VOLUME 7.7 fl (7.5-11.1); MONO % 7.4 % (3.8-10.2); NEUT % 90.8 % (42.8-82.8); PLATELET COUNT 370 K/MM3 (134-434); RDW 15.5 % (11.9-15.9); WHITE BLOOD COUNT 23.2 K/mm3 (4.0-10.0)
[2018-03-12] MEDS ORDERED: MORPHINE SULFATE 10 MG/1 ML *VIAL ONE (18:05)
[2018-03-12 18:18] LABS: INR 1.19 (0.83-1.09); PROTHROMBIN TIME (PATIENT) 13.4 SEC (9.7-13.0)
[2018-03-12] MEDS ORDERED: PIPERACILLIN/TAZOB 3.375 GM 3.375 GM in DEXTROSE 5%-WATER - 50 ML IVPB ONE (18:29)
[2018-03-12] MEDS ORDERED: VANCOMYCIN 1,000 MG in DEXTROSE 5%-WATER - 250 ML IVPB ONE (18:29)
[2018-03-12 18:32] LABS: ANION GAP 21 MMOL/L (8-16); BILIRUBIN,TOTAL 2.2 mg/dL (0.2-1.0); CALCIUM 7.7 mg/dL (8.5-10.1); CHLORIDE 93 mmol/L (98-107); CO2 10 mmol/L (21-32); GLUCOSE,RANDOM 255 mg/dL (74-106); SGOT/AST 82 U/L (15-37); SGPT/ALT 42 U/L (12-78); TOT PROT 5.3 g/dl (6.4-8.2)
[2018-03-12 18:39] LABS: ALK PHOS 252 U/L (45-117); PHOSPHOROUS 13.7 mg/dL (2.5-4.9)
[2018-03-12] MEDS ORDERED: LIDOCAINE 1%/EPI 1:100000 (20 ML MULTI DOSE VIAL) INF ONE (18:43)
[2018-03-12 18:47] LABS: BLOOD UREA NITROGEN 133 mg/dL (7-18); CREATININE 10.8 mg/dL (0.7-1.3)
[2018-03-12 18:48] LABS: SODIUM 124 mmol/L (136-145)
[2018-03-12] MEDS ORDERED: LIDOCAINE 1%/EPI 1:100000 (20 ML MULTI DOSE VIAL) ONE (18:50)
[2018-03-12] MEDS ORDERED: SODIUM BICARBONATE 8.4% 50 MEQ/50 ML DISP.SYRIN IVPUSH ONE (19:11)
[2018-03-12] MEDS ORDERED: ALBUTEROL SO4 0.083% IH SOL 2.5 MG/3 ML VIAL.NEB. NEB ONE ×2 (19:11→19:35)
[2018-03-12 19:17] LABS: ANISOCYTOSIS 1+; MACROCYTOSIS 1+
--- NOTE | 2018-03-12 19:18 | PDOC ---
*Physical Exam - Vital Signs Last Vital Signs Temp Pulse Resp BP Pulse Ox 97 F L 88 18 142/97 95 03/12/18 11:49 03/12/18 11:49 03/12/18 11:49 03/12/18 11:49 03/12/18 11:49 ED Treatment Course - LABORATORY CBC & Chemistry Diagram: 03/12/18 17:42 03/12/18 17:42 - ADDITIONAL ORDERS Additional order review: Laboratory Results 03/12/18 03/12/18 03/12/18 17:50 17:42 17:42 PT with INR INR PTT (Actin FS) Sodium 124 L* Potassium 7.0 H* D Chloride 93 L D Carbon Dioxide 10 L Anion Gap 21 H BUN 133 H* Creatinine 10.8 H* Creat Clearance w eGFR 4.75 Random Glucose 255 H Lactic Acid 1.3 Calcium 7.7 L D Phosphorus 13.7 H* Magnesium 3.0 H Total Bilirubin 2.2 H AST 82 H ALT 42 Alkaline Phosphatase 252 H Creatine Kinase 33 L Troponin I < 0.02 Total Protein 5.3 L Albumin 2.0 L Lipase Blood Type O POSITIVE Antibody Screen Negative 03/12/18 03/12/18 17:42 14:29 PT with INR 13.40 H INR 1.19 H PTT (Actin FS) 27.0 Sodium 117 L* D Potassium 21.7 H* D Chloride 84 L D Carbon Dioxide 11 L D Anion Gap 22 H BUN 135 H* D Creatinine 11.1 H* Creat Clearance w eGFR 4.61 Random Glucose 275 H D Lactic Acid Calcium < 5.0 L* D Phosphorus 14.5 H* D Magnesium 2.8 H D Total Bilirubin 2.5 H AST 88 H D ALT 47 D Alkaline Phosphatase 246 H D Creatine Kinase 46 Troponin I < 0.02 Total Protein 6.6 Albumin 2.4 L Lipase 215 Blood Type Antibody Screen 03/12/18 17:42 RBC 5.50 MCV 85.1 MCHC 32.5 RDW 15.5 MPV 7.7 Neutrophils % 90.8 H Lymphocytes % 1.4 L D Monocytes % 7.4 Eosinophils % 0.0 D Basophils % 0.4 - Medications Given in the ED: ED Medications Discontinued Medications Generic Name Dose Route Start Last Admin Trade Name Freq PRN Reason Stop Dose Admin Lidocaine/Epinephrine 5 ml 03/12/18 18:43 09/02/18 19:00 Xylocaine 1%-Epi 1:100,000 INF 03/12/18 18:44 5 ml ONCE ONE Administration Morphine Sulfate 4 mg 03/12/18 12:42 03/12/18 14:21 Morphine Injection - IVPUSH 03/12/18 12:43 4 mg ONCE ONE Administration Morphine Sulfate 6 mg 03/12/18 13:33 03/12/18 14:00 Morphine Injection - IVPUSH 03/12/18 13:34 6 mg ONCE ONE Administration Morphine Sulfate 6 mg 03/12/18 18:00 03/12/18 18:15 Morphine Injection - IVPUSH 03/12/18 18:01 6 mg ONCE ONE Administration Ondansetron HCl 4 mg 03/12/18 12:30 03/12/18 14:21 Zofran Injection IVPB 03/12/18 12:31 4 mg ONCE ONE Administration Medical Decision Making - Medical Decision Making 03/12/18 20:[address] Gilbert. Patient is 67 year old male with a significant past medical history of HTN, Diverticulosis, Renal Insufficiency, DM, recently diagnosed abdominal pass here complaining of urinary retention, constipation and abdominal pain. Broad workup initiated. First CMP contaminated, shows values not compatible with life. Laboratory Tests 03/12/18 03/12/18 17:42 17:42 WBC 23.2 H Hgb 15.2 Plt Count 370 D Sodium 124 L* Potassium 7.0 H* D BUN 133 H* Creatinine 10.8 H* Phosphorus 13.7 H* Total Bilirubin 2.2 H Troponin I < 0.02 CBC shows leukocytosis with neutrophilia. Electrolytes grossly abnormal. K 7.0, BUN 133, Cr 10.8. Concern for hepatorenal syndrome. Renal consulted, given hyperk meds per renal. Holding dialysis for now. EKG shows no peaked t waves. Paracentesis performed as per the procedure note. Antibiotics given. Miramontes placed, minimal amount of drainage. Hepatorenal syndrome more likely. Pending imaging. 03/12/18 20:31 Accepted admission to ICU. 03/12/18 21:00 US shows cholelithiasis and ascites. CT shows: Impression: 1. Multiple hepatic metastatic lesions. 2. Omental caking consistent with peritoneal carcinomatosis. 3. Small nodules within the fat along the left anterior aspect of the pericardium consistent with metastatic disease. 4. Mass within the tail of the pancreas which likely represents the patient's known primary. 5. Multiple right-sided nonobstructive renal calculi. 6. Extensive colonic diverticulosis, without evidence of diverticulitis. 7. No evidence of sacral overload to suggest constipation or hydronephrosis to suggest obstructive uropathy. 03/12/18 23:08 Trialysis placed as in procedure note. *DC/Admit/Observation/Transfer Diagnosis at time of Disposition: Pancreas cancer Qualifiers: Pancreatic malignancy location: unspecified Qualified Code(s): C25.9 - Malignant neoplasm of pancreas, unspecified Leukocytosis Qualifiers: Leukocytosis type: unspecified Qualified Code(s): D72.829 - Elevated white blood cell count, unspecified Acute renal failure Qualifiers: Acute renal failure type: unspecified Qualified Code(s): N17.9 - Acute kidney failure, unspecified - Discharge Dispostion Condition at time of disposition: Guarded - Referrals - Patient Instructions - Post Discharge Activity Procedure Note Procedure: Procedure: Paracentesis Physician(s): Vivek Gilbert Indication: Abd pain with ascites Anesthesia: 1% Lidocaine with epi Ultrasound guidance was used to locate and michael an ascitic pocket A time-out was completed, verifying correct patient, procedure, site, positioning. Patient was positioned, prepped, and draped in the usual sterile fashion. 1% Lidocaine w/ epi was used to anesthetize the area. A 21g needle was placed using z-technique and 60 ml clear bloody fluid was removed and sent for cell counts, gram stain, bacterial culture, and albumin levels. Complications: None Blood loss: Minimal Dr. Kerwin Gilbert was present during the entire procedure.
[2018-03-12 19:19] LABS: PLATELET ESTIMATE ADEQUATE
[2018-03-12] MEDS ORDERED: DEXTROSE 50%-WATER - 25 GM/50 ML VIAL IVPUSH ONE (19:30)
[2018-03-12] MEDS ORDERED: INSULIN REGULAR HUMAN 100 UNITS/ML *VIAL IVPUSH ONE (19:30)
[2018-03-12] MEDS ORDERED: VANCOMYCIN 1 GRAM (PRE-DOCKED) 1,000 MG/250 ML BAG IVPB ONE (19:36)
[2018-03-12] MEDS ORDERED: SODIUM BICARBONATE 8.4% - 50 ML ONE (19:36)
[2018-03-12] MEDS ORDERED: INSULIN REGULAR HUMAN 100 UNITS/ML *VIAL ONE (19:37)
[2018-03-12 19:48] LABS: TOTAL PROTEIN,PERITONEAL FLUID 4 gm/dL
--- NOTE | 2018-03-12 20:09 | HP ---
Admitting History and Physical - Admission History of Present Illness: pt c/o of unable to urinate 3 days abd discomfort no other complaints had ascitic fluid out?3200cc? 2 days ago pt has escudero ket tuesday in the system History Source: Patient (pancreatic ca w liver mets) - Past Medical History Cardiovascular: Yes: HTN Gastrointestinal: Yes: Diverticulosis, Other (gall stones) Renal/: Yes: Renal Inusuff, Other (villaseñor in now) Infectious Disease: Yes: Other (wbc high ? marginal) Musculoskeletal: Yes: Other (lt leg phlebitis tx already) Endocrine: Yes: Diabetes Mellitus - Past Surgical History Past Surgical History: Yes: None (rt ing hernia lt knee sx) - Smoking History Smoking history: Never smoked Have you smoked in the past 12 months: No If you are a former smoker, when did you quit?: 20yrs ago - Alcohol/Substance Use Hx Alcohol Use: Yes (wine daily) History of Substance Use: reports: None - Social History Usual Living Arrangement: Yes: With Spouse ADL: Independent History of Recent Travel: No Home Medications - Allergies Allergies/Adverse Reactions: Allergies Allergy/AdvReac Type Severity Reaction Status Date / Time No Known Drug Allergies Allergy Verified 03/12/18 11:52 - Home Medications Home Medications: Ambulatory Orders Insulin (Levemir) [Levemir Vial] 10 unit SQ DAILY 02/20/18 Metoprolol Succinate [Toprol Xl] 50 mg PO HS 02/20/18 Aspirin Coated [Ecotrin -] 81 mg PO DAILY 03/02/18 Family Disease History - Family Disease History Family History: Unremarkable Review of Systems - Review of Systems Gastrointestinal: reports: Abdominal Pain Genitourinary: reports: Other (unable to urinate) Physical Examination Vital Signs: Vital Signs Temperature 97 F L 03/12/18 11:49 Pulse Rate 88 03/12/18 11:49 Respiratory Rate 18 03/12/18 11:49 Blood Pressure 142/97 03/12/18 11:49 O2 Sat by Pulse Oximetry (%) 95 03/12/18 11:49 Constitutional: Yes: Calm Eyes: Yes: WNL HENT: Yes: WNL Neck: Yes: WNL Cardiovascular: Yes: Regular Rate and Rhythm Respiratory: Yes: WNL Gastrointestinal: Yes: Other (suprapubic tenderness) Renal/: Yes: Anuria, Other Breast(s): Yes: WNL Musculoskeletal: Yes: WNL Extremities: Yes: WNL Edema: Yes Edema: LLE: 2+, RLE: 2+ Peripheral Pulses WNL: Yes Integumentary: Yes: WNL Neurological: Yes: WNL ...Motor Strength: WNL Psychiatric: Yes: WNL Labs: CBC, BMP 03/12/18 17:42 03/12/18 17:42 Problem List - Problems (1) Pancreatic adenomas and carcinomas Code(s): C25.9 - MALIGNANT NEOPLASM OF PANCREAS, UNSPECIFIED; D13.6 - BENIGN NEOPLASM OF PANCREAS Assessment/Plan villaseñor in miralax x1 salty iv hydration na diet tx hyperkalemia gi id nefro dr wagner to see pt zosyn iv wacth violeta l numbers ordonez[[prtive care gu do psa needs authorization ? albumin iicu admit
[2018-03-12 20:24] LABS: PERITONEAL RBC 14498 /mm3
[2018-03-12] MEDS ORDERED: INSULIN (LEVEMIR) 100 UNITS/ML UNITS SQ SCH (22:00)
--- NOTE | 2018-03-12 22:18 | CONSULT ---
Consult Consult Specialty:: Nephrology Reason for Consultation:: WINDY - History of Present Illness Chief Complaint: no urination for 4 days History of Present Illness: Pt is a 67 year old male with pmhx of CKD, newly diagnosed pancreatic cancer, HTN and DM who presents to the ER with no urination for the last four days. He says that he noticed his urine output decreasing and it stopped completely four days ago. He is accompanied by his family. He had refused to come to the hospital. He has not started treatment for the metastatic pancreatic cancer. He was found to be in acute renal failure with hyperkalemia and I was called as a stat consult. He does not take nsaids regularly but did take some alieve a few days ago. He was recently started on spironolactone and he toll 3 days of it. He denies shortness of breath. He complains of fatigue. I discussed treatment options at length with pt and his family. They do want HD therapy. I explained risks and options. - History Source History Provided By: Patient, Family Member - Past Medical History Cardio/Vascular: Yes: HTN Gastrointestinal: Yes: Diverticulosis, Other (gall stones) Renal/: Yes: Renal Inusuff, Other Musculoskeletal: Yes: Other (lt leg phlebitis tx already) Endocrine: Yes: Diabetes Mellitus - Past Surgical History Past Surgical History: Yes: None (rt ing hernia lt knee sx) - Alcohol/Substance Use Hx Alcohol Use: Yes (wine daily) History of Substance Use: reports: None - Smoking History Smoking history: Never smoked Have you smoked in the past 12 months: No If you are a former smoker, when did you quit?: 20yrs ago - Social History ADL: Independent History of Recent Travel: No Home Medications - Allergies Allergies/Adverse Reactions: Allergies Allergy/AdvReac Type Severity Reaction Status Date / Time No Known Drug Allergies Allergy Verified 03/12/18 11:52 - Home Medications Home Medications: Ambulatory Orders Insulin (Levemir) [Levemir Vial] 10 unit SQ DAILY 02/20/18 Metoprolol Succinate [Toprol Xl] 50 mg PO HS 02/20/18 Aspirin Coated [Ecotrin -] 81 mg PO DAILY 03/02/18 Family Disease History - Family Disease History Family History: Denies Review of Systems - Review of Systems Constitutional: reports: Malaise. denies: Chills, Fever Eyes: reports: No Symptoms HENT: reports: No Symptoms Neck: reports: No Symptoms Cardiovascular: reports: Edema Respiratory: reports: SOB, SOB on Exertion Gastrointestinal: reports: Bloating Genitourinary: reports: Other (anuria) Musculoskeletal: reports: Muscle Weakness Neurological: reports: No Symptoms Endocrine: reports: No Symptoms Hematology/Lymphatic: reports: No Symptoms Psychiatric: reports: No Symptoms Physical Exam Vital Signs: Vital Signs Temperature 97.5 F L 03/12/18 21:19 Pulse Rate 94 H 03/12/18 21:19 Respiratory Rate 14 03/12/18 21:19 Blood Pressure 110/71 03/12/18 21:19 O2 Sat by Pulse Oximetry (%) 95 03/12/18 21:00 Constitutional: Yes: Calm, Other (pt has odor of urea on breath) Eyes: Yes: Conjunctiva Clear HENT: Yes: Atraumatic Cardiovascular: Yes: S1, S2 Respiratory: Yes: On Nasal O2, Rhonchi Gastrointestinal: Yes: Soft, Abdomen, Obese Renal/: Yes: Anuria, Villaseñor Present Musculoskeletal: Yes: Muscle Weakness Edema: Yes Edema: LLE: Trace, RLE: Trace Integumentary: Yes: WNL Neurological: Yes: Oriented Psychiatric: Yes: Oriented Labs: CBC, BMP 03/12/18 17:42 03/12/18 17:42 Laboratory Tests 02/22/18 02/23/18 03/02/18 07:00 06:15 16:15 Sodium Potassium BUN Creatinine 1.2 1.2 2.2 H Lactic Acid Calcium Total Protein Albumin 03/03/18 03/12/18 03/12/18 06:00 14:29 17:42 Sodium 117 L* D 124 L* Potassium 21.7 H* D 7.0 H* D BUN 135 H* D 133 H* Creatinine 2.0 H 11.1 H* 10.8 H* Lactic Acid Calcium 7.7 L D Total Protein 5.3 L Albumin 2.0 L 03/12/18 17:42 Sodium Potassium BUN Creatinine Lactic Acid 1.3 Calcium Total Protein Albumin Imaging - Results Chest X-ray: Image Reviewed Cat Scan: Report Reviewed Problem List - Problems (1) WINDY (acute kidney injury) Code(s): N17.9 - ACUTE KIDNEY FAILURE, UNSPECIFIED (2) Hyperkalemia Code(s): E87.5 - HYPERKALEMIA (3) Acidosis Code(s): E87.2 - ACIDOSIS (4) Acute renal failure Code(s): N17.9 - ACUTE KIDNEY FAILURE, UNSPECIFIED Qualifiers: Acute renal failure type: unspecified Qualified Code(s): N17.9 - Acute kidney failure, unspecified (5) Pancreas cancer Code(s): C25.9 - MALIGNANT NEOPLASM OF PANCREAS, UNSPECIFIED Qualifiers: Pancreatic malignancy location: unspecified Qualified Code(s): C25.9 - Malignant neoplasm of pancreas, unspecified (6) Pancreatic adenomas and carcinomas Code(s): C25.9 - MALIGNANT NEOPLASM OF PANCREAS, UNSPECIFIED; D13.6 - BENIGN NEOPLASM OF PANCREAS Assessment/Plan Current Medications Generic Name Dose Route Start Last Admin Trade Name Freq PRN Reason Stop Dose Admin Sodium Chloride 1,000 mls @ 125 mls/hr 03/12/18 12:30 03/12/18 14:47 Normal Saline - IV 125 mls/hr ASDIR ZENY Administration Insulin Detemir 10 units 03/12/18 22:00 Levemir Vial SQ HS ZENY Metoprolol Succinate 50 mg 03/13/18 10:00 Toprol Xl - PO DAILY ZENY Impression 1. WINDY 2. hyperkalemia 3. DM 4. pancreatic cancer with mets 5. acidosis 6. leukocytosis 7. hyperphosphatemia Plan - will arrange for urgent bedside HD - admit pt to ICU - potassium treated medically, will improve with HD - dialysis will help with acidosis as well - discussed risks and side effects with pt and family, they agree - oncology eval for pancreatic cancer, pt does want aggressive therapy - villaseñor placed and pt is not making urine, keep villaseñor in place and monitor if he starts to make urine - ct scan prelim reports show no hydro however does show metastatic disease - family are aware of progrosis - send cultures - avoid nephtotoxins - start phoslo with meals - GI eval pending - critical care eval - discussed with ER, they will place shiley for HD - discussed with PMD - discussed with ICU team - repeat phos in am - repeat labs post HD Dr Moura
[2018-03-12] MEDS ORDERED: SODIUM CHLORIDE 250 ML IV PRN (22:25)
[2018-03-12] MEDS ORDERED: SODIUM CHLORIDE 1,000 ML IV STA (22:27)
[2018-03-12] MEDS ORDERED: SODIUM CHLORIDE 0.9% 500 ML INFUS.BAG IV ONE (22:30)
[2018-03-12] MEDS ORDERED: ONDANSETRON 4 MG/2 ML VIAL IVPUSH PRN (23:33)
[2018-03-12 23:35] LABS: URINE APPEARANCE CLOUDY; URINE BILIRUBIN NEGATIVE (<2.0 mg/dL); URINE COLOR AMBER; URINE GLUCOSE (UA) 1+ (NEGATIVE); URINE KETONE NEGATIVE (NEGATIVE); URINE NITRITE NEGATIVE (NEGATIVE); URINE UROBILINOGEN NEGATIVE mg/dL (0.2-1.0)
--- NOTE | 2018-03-12 23:35 | CONSULT ---
Consultation: CONSULT REQUEST: We have been asked to medically evaluate this patient for critical care. HISTORY OF PRESENT ILLNESS: 67 y/o M w/PMH of HTN, DM, nephrolithiasis, diverticulosis, recently diagnosed pancreatic cancer with liver mets presents to the ER with decreased PO intake over the last 5 days, nausea (no vomiting), worsening abd distension and pain, SOB from abd distension, no urination or BMs for almost last 6-7 days, generalized weakness. Pt had paracentesis on 03/02 (3.7 L removed), 03/10 (apprx 4.7 L removed according to the pt). He was to see onc at [facility] [place] this Tuesday for his recently diagnosed (diagnosed approx 3 weeks ago) pancreatic ca (CA 19-9 was elevated at 25,000 on 02/20) but was brought to the ER due to worsening of overall previously listed symptoms. He hasnt been eating due to nausea but does have an appetite and hasn't vomited. He has not had food in approx 5 days and has only been able to drink approx 2 glasses of water a day over this time. He denies F/C, CP, DUGGAN, new LE swelling, dysuria previously to oliguria episode, or blood in stool on last BM approx 6-7 days ago. In ER villaseñor was placed with no urine return. Pt was also found to have on labs: WBC 23 (w/91% neutrophils), Na 124, K+ 7 (w/no EKG changes), BUN/Cr 133/10.8 (baseline Cr: 1.2 on 02/23/18). Diagnostic paracentesis for fluid analysis done in ER. CT abd/pelvis, abd US, CXR done in ER. PMH: HTN, DM, nephrolithiasis, diverticulosis, recently diagnosed pancreatic cancer with liver mets (diagnosed approx 3 weeks ago) PSHx: R inguinal hernia, L knee surgery, Paracentesis x2 (03/02 and 03/10) SH: Smoking: pt quit smoking 25 years ago. Smoked 1 - 1.5 ppd for approx 30 years. Alcohol: Drinks 1 L of wine per day since he was child. Quit recently with diagnosis of cancer. Drugs: Denies drug use Lives with at home. Able to complete ADLs independently before recent weakness. FH: Sister with colon ca at approx age of 70. Allergies: NKDA REVIEW OF SYSTEMS: CONSTITUTIONAL: +generalized weakness, decreased PO intake Absent: fever, chills CARDIOVASCULAR: Absent: chest pain RESPIRATORY: +SOB from abd distension GASTROINTESTINAL:+abd pain, abd distension, nausea Absent: vomiting : +oliguria NEUROLOGIC: Absent: headache PHYSICAL EXAMINATION Vital Signs - 24 hr 03/12/18 03/12/18 03/12/18 11:49 21:00 21:19 Temperature 97 F L 97.5 F L Pulse Rate 88 94 H Respiratory 18 14 14 Rate Blood Pressure 142/97 110/71 O2 Sat by Pulse 95 95 Oximetry (%) GENERAL: Awake, alert, and fully oriented, in no acute distress. HEAD: Normal with no signs of trauma. EYES: extraocular movements intact EARS, NOSE, THROAT: Ears normal, nares patent. NECK: Normal range of motion, supple LUNGS: Breath sounds equal, clear to auscultation bilaterally. HEART: Regular rate and rhythm, normal S1 and S2 without murmur, rub or gallop. ABDOMEN: +distended, hypoactive BS, pain in R flank otherwise no tenderness to palpation. +fluid wave. LOWER EXTREMITIES: warm, well-perfused. No calf tenderness. No peripheral edema. NEUROLOGICAL: Cranial nerves II-XII grossly intact. Normal speech. Gait not observed. PSYCHIATRIC: Cooperative. Good eye contact. Appropriate mood and affect. SKIN: Warm, dry Laboratory Results - last 24 hr 03/12/18 03/12/18 03/12/18 14:29 17:42 17:42 WBC 23.2 H RBC 5.50 Hgb 15.2 Hct 46.8 D MCV 85.1 MCH 27.6 MCHC 32.5 RDW 15.5 Plt Count 370 D MPV 7.7 Absolute Neuts (auto) 21.1 H Total Counted 100 Neutrophils % 90.8 H Neutrophils % (Manual) 91.0 H Lymphocytes % 1.4 L D Lymphocytes % (Manual) 3.0 L Monocytes % 7.4 Monocytes % (Manual) 6 Eosinophils % 0.0 D Basophils % 0.4 Nucleated RBC % 0 Differential Comment Man diff performed Platelet Estimate Adequate Platelet Comment Polychromasia 1+ Anisocytosis 1+ Macrocytosis 1+ PT with INR 13.40 H INR 1.19 H PTT (Actin FS) 27.0 Sodium 117 L* D Potassium 21.7 H* D Chloride 84 L D Carbon Dioxide 11 L D Anion Gap 22 H BUN 135 H* D Creatinine 11.1 H* Creat Clearance w eGFR 4.61 Random Glucose 275 H D Lactic Acid Calcium < 5.0 L* D Phosphorus 14.5 H* D Magnesium 2.8 H D Total Bilirubin 2.5 H AST 88 H D ALT 47 D Alkaline Phosphatase 246 H D Creatine Kinase 46 Troponin I < 0.02 Total Protein 6.6 Albumin 2.4 L Lipase 215 Peritoneal WBC Peritoneal RBC Peritoneal Tot Protein Peritoneal Albumin Peritoneal LDH Peritoneal Glucose Peritoneal Amylase Blood Type Antibody Screen 03/12/18 03/12/18 03/12/18 17:42 17:42 17:50 WBC RBC Hgb Hct MCV MCH MCHC RDW Plt Count MPV Absolute Neuts (auto) Total Counted Neutrophils % Neutrophils % (Manual) Lymphocytes % Lymphocytes % (Manual) Monocytes % Monocytes % (Manual) Eosinophils % Basophils % Nucleated RBC % Differential Comment Platelet Estimate Platelet Comment Polychromasia Anisocytosis Macrocytosis PT with INR INR PTT (Actin FS) Sodium 124 L* Potassium 7.0 H* D Chloride 93 L D Carbon Dioxide 10 L Anion Gap 21 H BUN 133 H* Creatinine 10.8 H* Creat Clearance w eGFR 4.75 Random Glucose 255 H Lactic Acid 1.3 Calcium 7.7 L D Phosphorus 13.7 H* Magnesium 3.0 H Total Bilirubin 2.2 H AST 82 H ALT 42 Alkaline Phosphatase 252 H Creatine Kinase 33 L Troponin I < 0.02 Total Protein 5.3 L Albumin 2.0 L Lipase Peritoneal WBC Peritoneal RBC Peritoneal Tot Protein Peritoneal Albumin Peritoneal LDH Peritoneal Glucose Peritoneal Amylase Blood Type O POSITIVE Antibody Screen Negative 03/12/18 03/12/18 19:08 19:25 WBC RBC Hgb Hct MCV MCH MCHC RDW Plt Count MPV Absolute Neuts (auto) Total Counted Neutrophils % Neutrophils % (Manual) Lymphocytes % Lymphocytes % (Manual) Monocytes % Monocytes % (Manual) Eosinophils % Basophils % Nucleated RBC % Differential Comment Platelet Estimate Platelet Comment Polychromasia Anisocytosis Macrocytosis PT with INR INR PTT (Actin FS) Sodium Potassium Chloride Carbon Dioxide Anion Gap BUN Creatinine Creat Clearance w eGFR Random Glucose Lactic Acid Calcium Phosphorus Magnesium Total Bilirubin AST ALT Alkaline Phosphatase Creatine Kinase Troponin I Total Protein Albumin Lipase Peritoneal WBC 2137 Peritoneal RBC 43333 Peritoneal Tot Protein 4 Peritoneal Albumin 2 Peritoneal LDH 607 Peritoneal Glucose 226 Peritoneal Amylase 11 Blood Type Antibody Screen CT abd pelvis: Prelim Read: Impression: 1. Multiple hepatic metastatic lesions. 2. Omental caking consistent with peritoneal carcinomatosis. 3. Small nodules within the fat along the left anterior aspect of the pericardium consistent with metastatic disease. 4. Mass within the tail of the pancreas which likely represents the patient's known primary. 5. Multiple right-sided nonobstructive renal calculi. 6. Extensive colonic diverticulosis, without evidence of diverticulitis. 7. No evidence of sacral overload to suggest constipation or hydronephrosis to suggest obstructive uropathy. Active Medications Generic Name Dose Route Start Last Admin Trade Name Freq PRN Reason Stop Dose Admin Sodium Chloride 1,000 mls @ 125 mls/hr 03/12/18 12:30 03/12/18 14:47 Normal Saline - IV 125 mls/hr ASDIR ZENY Administration Insulin Detemir 10 units 03/12/18 22:00 Levemir Vial SQ HS ZENY Metoprolol Succinate 50 mg 03/13/18 10:00 Toprol Xl - PO DAILY ZENY ASSESSMENT/PLAN: 67 y/o M w/PMH of HTN, DM, nephrolithiasis, diverticulosis, recently diagnosed pancreatic cancer with liver mets presents to the ER with decreased PO intake over the last 5 days, nausea (no vomiting), worsening abd distension and pain, SOB from abd distension, no urination or BMs for almost last 6-7 days, generalized weakness. Pt had paracentesis 03/02 and 03/10. -Neuro -AAOx3 -GI -Abd distension likely secondary to fluid accumulation from metastatic pancreatic ca -CA 19-9: 25,000 on 02/20 -Heme consult -Palliative consult -f/u diagnostic paracentesis fluid analysis. f/u official CT read. -Empiric abx given in ER (vanc/zosyn) -ID consulted -GI consult -zofran for nausea -Renal -BUN/Cr 133/10.8 (baseline Cr: 1.2 on 02/23/18) -Urgent HD as per nephro. R groin trialysis clotted. Pt was able to get 30 min of HD. Spoke with Dr. Moura who would like repeat chemistry at this time ; to treat hyperkalemia medically if high on repeat labs, and will get vascular surgery consult (Dr. Indra Julien) for clotted trialysis. -To start on D5W + 150 meq sodium bicarb @ 100 ml/hr -Nephro consult -Monitor BUN/Cr -f/u UA -ID -Leukocytosis -r/o SBP -given vanc/zosyn in ER -ID consulted -Resp -O2 supplemenatation to keep O2 sat >90% -C/V -HTN -on metoprolol XL 50 mg qd -consider IV anti-hypertensives if NPO and hypertensive -FEN -To start on D5W + 150 meq sodium bicarb @ 100 ml/hr -Hyponatremia, hypokalemia (give alb nebs and insulin / d50), hyperphosphatemia, hyperMg. -c/w NS @ 125 ml/hr, pt to get dialysis, phoslo with meals when eating. -NPO for now -DVT ppx -SCDs -Dispo: Will monitor in ICU. Palliative consult placed. -Code status: Spoke with pt who states he wants everything done. -Full code Visit type - Emergency Visit Emergency Visit: Yes ED Registration Date: 03/12/18 Care time: The patient presented to the Emergency Department on the above date and was hospitalized for further evaluation of their emergent condition. - New Patient This patient is new to me today: Yes Date on this admission: 03/13/18 - Critical Care Critical Care patient: Yes Total Critical Care Time (in minutes): 56 Critical Care Statement: The care of this patient involved high complexity decision making to prevent further life threatening deterioration of the patient 's condition and/or to evaluate & treat vital organ system(s) failure or risk of failure.
[2018-03-12 23:40] LABS: BASO % 0.2 % (0-2.0); EOS % 0.1 % (0-4.5); HEMATOCRIT 45.6 % (35.4-49); HEMOGLOBIN 14.7 GM/dL (11.7-16.9); LYMPH % 2.3 % (8-40); MCH 27.4 pg (25.7-33.7); MCHC 32.3 g/dl (32.0-35.9); MEAN CELL VOLUME 84.8 fl (80-96); MEAN PLT VOLUME 7.8 fl (7.5-11.1); MONO % 9.3 % (3.8-10.2); NEUT % 88.1 % (42.8-82.8); PLATELET COUNT 368 K/MM3 (134-434); RBC 5.38 M/mm3 (4.00-5.60); RDW 15.3 % (11.9-15.9); WHITE BLOOD COUNT 22.1 K/mm3 (4.0-10.0)
[2018-03-12 23:43] LABS: URINE LEUK ESTERASE 3+ (NEGATIVE); URINE PROTEIN 2+ (NEGATIVE)
[2018-03-12 23:45] LABS: EPI CELLS RARE /HPF (FEW); URINE BACTERIA RARE /hpf (NONE SEEN); URINE MUCUS RARE
[2018-03-13 00:14] LABS: ANION GAP 20 MMOL/L (8-16); CALCIUM 7.5 mg/dL (8.5-10.1); CHLORIDE 91 mmol/L (98-107); CO2 15 mmol/L (21-32); GLUCOSE,RANDOM 200 mg/dL (74-106); SODIUM 126 mmol/L (136-145)
[2018-03-13 00:35] LABS: BLOOD UREA NITROGEN 145 mg/dL (7-18); CREATININE 10.9 mg/dL (0.7-1.3)
[2018-03-13 00:36] LABS: POTASSIUM 6.8 mmol/L (3.5-5.1)
[2018-03-13] MEDS ORDERED: SODIUM BICARBONATE 8.4% - 150 MEQ in DEXTROSE 5%-WATER - 1,000 ML IV SCH (01:15)
[2018-03-13 01:21] LABS: ALBUMIN 1.8 g/dl (3.4-5.0); AMYLASE 30 U/L (25-115); ANION GAP 19 MMOL/L (8-16); CALCIUM 7.3 mg/dL (8.5-10.1); CHLORIDE 93 mmol/L (98-107); CO2 15 mmol/L (21-32); GLUCOSE,RANDOM 198 mg/dL (74-106); SGOT/AST 99 U/L (15-37); SGPT/ALT 44 U/L (12-78); SODIUM 127 mmol/L (136-145)
[2018-03-13 01:23] LABS: ALK PHOS 240 U/L (45-117); BILIRUBIN,TOTAL 2.3 mg/dL (0.2-1.0); TOT PROT 4.9 g/dl (6.4-8.2)
[2018-03-13 01:34] LABS: BLOOD UREA NITROGEN 145 mg/dL (7-18); CREATININE 10.7 mg/dL (0.7-1.3)
[2018-03-13 01:35] LABS: POTASSIUM 6.6 mmol/L (3.5-5.1)
[2018-03-13] MEDS ORDERED: INSULIN REGULAR HUMAN 100 UNITS/ML *VIAL IVPUSH ONE (01:39)
[2018-03-13] MEDS ORDERED: DEXTROSE 50%-WATER - 25 GM/50 ML VIAL IVPUSH ONE (01:39)
[2018-03-13 06:21] LABS: BASO % 0.3 % (0-2.0); EOS % 0.2 % (0-4.5); HEMATOCRIT 43.2 % (35.4-49); HEMOGLOBIN 14.1 GM/dL (11.7-16.9); LYMPH % 2.3 % (8-40); MCH 27.6 pg (25.7-33.7); MCHC 32.5 g/dl (32.0-35.9); MEAN CELL VOLUME 84.7 fl (80-96); MEAN PLT VOLUME 7.9 fl (7.5-11.1); MONO % 9.7 % (3.8-10.2); NEUT % 87.5 % (42.8-82.8); PLATELET COUNT 238 K/MM3 (134-434); WHITE BLOOD COUNT 20.9 K/mm3 (4.0-10.0)
[2018-03-13 06:43] LABS: ALBUMIN 1.7 g/dl (3.4-5.0); ANION GAP 19 MMOL/L (8-16); CALCIUM 7.3 mg/dL (8.5-10.1); CHLORIDE 89 mmol/L (98-107); CO2 18 mmol/L (21-32); GLUCOSE,RANDOM 254 mg/dL (74-106); SODIUM 126 mmol/L (136-145)
[2018-03-13 06:46] LABS: ALK PHOS 251 U/L (45-117); BILIRUBIN,TOTAL 2.4 mg/dL (0.2-1.0); SGOT/AST 120 U/L (15-37); SGPT/ALT 48 U/L (12-78); TOT PROT 4.8 g/dl (6.4-8.2)
[2018-03-13 07:24] LABS: BLOOD UREA NITROGEN 137 mg/dL (7-18)
[2018-03-13 07:25] LABS: CREATININE 10.6 mg/dL (0.7-1.3); PHOSPHOROUS 11.9 mg/dL (2.5-4.9); POTASSIUM 6.8 mmol/L (3.5-5.1)
--- NOTE | 2018-03-13 08:38 | PN ---
Progress Note (short form) - Note Progress Note: ID consult dictated imp/reccd 67 year old man with recent diagnosis of metastatic pancreatic cancer admitted form home with generalized body pain- taking ultram at e no urine output for several days no bm for two weeks! found to be in acute renal failure with K of 7 in ED also elevated WBC denies fevers/chills acute renal failure metastatic pancreatic cancer leukocytosis- ?leukemoid reaction versus sepsis s/p paracentesis- cultures pending received vancomycin/zosyn last night continue zosyn pending cultures for HD today overall prognosis poor Problem List - Problems (1) Acute renal failure Code(s): N17.9 - ACUTE KIDNEY FAILURE, UNSPECIFIED Qualifiers: Acute renal failure type: unspecified Qualified Code(s): N17.9 - Acute kidney failure, unspecified (2) Metastatic adenocarcinoma Code(s): C79.9 - SECONDARY MALIGNANT NEOPLASM OF UNSPECIFIED SITE (3) Leukocytosis Code(s): D72.829 - ELEVATED WHITE BLOOD CELL COUNT, UNSPECIFIED Qualifiers: Leukocytosis type: unspecified Qualified Code(s): D72.829 - Elevated white blood cell count, unspecified
[2018-03-13 09:19] VITALS: TEMP 97.8
[2018-03-13] MEDS ORDERED: PIPERACILLIN/TAZOBACTAM 2.25 GM VIAL IVPB ONE (09:26)
[2018-03-13] MEDS ORDERED: DEXTROSE 5%-WATER - 50 ML IVPB ONE (09:27)
[2018-03-13] MEDS ORDERED: PIPERACILLIN/TAZOB 2.25 GM 2.25 GM in DEXTROSE 5%-WATER - 50 ML IVPB SCH (10:00)
[2018-03-13] MEDS ORDERED: MIDAZOLAM HCL 2 MG/2 ML SINGLE DOSE VIAL ONE (10:18)
[2018-03-13 10:30] VITALS: BP 127/85; PULSE 95
--- NOTE | 2018-03-13 10:33 | CONS ---
DATE OF CONSULTATION: DATE OF DICTATION: 03/13/2018 REQUESTING PHYSICIAN: Erick Rhodes MD HISTORY: This is a 67-year-old man who was diagnosed at the end of February with metastatic adenocarcinoma of the pancreas. He had paracentesis done twice. He was discharged home with plans to be elevated at [facility] this week. He at home grew progressively weaker. He has not had urine output for at least 3-4 days. He had no vomiting. He described diffuse pain all over for which he was taking Tramadol. He notes he has not had a bowel movement in 2 weeks. He has been able to drink water, which he has been doing. There have been no fever or chills. He presented with these complaints to the emergency room where he was noted to be in acute renal failure and to have a leukocytosis. He had a paracentesis done in the ER because he was complaining of diffuse abdominal pain. He has had 2 prior ones, he thinks, for diagnoses. He was admitted to the ICU. He had a Trialysis catheter placed, but unfortunately it became clotted, and he was only dialyzed for 1/2 an hour. He was seen emergently by Nephrology last night with plans for repeat dialysis today. Currently he is resting comfortably. He continues to have constipation. He notes he is short of breath only when he moves. Again, he has had no urine output overnight. PAST MEDICAL HISTORY: Notable for history of CKD, hypertension diverticulosis. He has diabetes. PAST SURGICAL HISTORY: He had a right inguinal hernia repair and a left knee MAKOplasty. ALLERGIES: He has no known drug allergies. MEDICATIONS: He has been taking Tramadol as needed, insulin, metoprolol, and aspirin. He was recently started on spironolactone. FAMILY HISTORY: Unremarkable. SOCIAL HISTORY: He lives with his family. Occasional wine use. No cigarette use. Stopped 20 years ago. REVIEW OF SYSTEMS: As per HPI. Diffuse body pain, constipation, and anuria. PHYSICAL EXAMINATION: General: A pleasant man awake and alert. Vital Signs: Temperature 98.2, pulse 99, blood pressure 120/89, respiratory rate 18. HEENT: He is normocephalic. His eyes are anicteric. Neck: Supple. Lungs: Clear to auscultation. He has diminished breath sounds at the bases. Heart: Regular rate and rhythm. Abdomen: Soft. It is distended. He has some diffuse discomfort on palpation. He has no rebound or guarding. Extremities: He has trace edema. DIAGNOSTIC DATA: White count 20,000 and on admission was 23.2, hemoglobin 14, platelet count 283. His INR is 1.1. Chemistries on admission: Sodium 124 with a potassium of 7, BUN 133, creatinine 10.8. He has a bilirubin of 2.4, AST 120, ALT 48 with alkaline phosphatase 251, albumin 1.7. Urinalysis with 3+ leukocytosis and 23 white cells. Peritoneal fluid has 2137 white cells with a differential pending, glucose of 223, LDH of 607. Official CAT scan report is pending. Preliminary report, per the emergency room, is notable for multiple metastatic lesions, omental caking, small nodules in pericardium. Mass in the tail of pancreas and no hydronephrosis. A chest x-ray is clear. In summary, this is a 67-year-old man with newly diagnosed metastatic adenocarcinoma most likely pancreatic in origin found to be with acute renal failure and a leukocytosis that could be leukomoid versus sepsis, possibly urinary. He is status post paracentesis as well. Culture is pending. He received vancomycin last night and Zosyn. Would continue Zosyn pending cultures. For dialysis today. Overall prognosis is poor given the level of aggressiveness of his tumor. Further recommendations to follow. RAFAELA BEATTY M.D. [id number]
[2018-03-13] MEDS ORDERED: INSULIN (NOVOLOG) ASPART 100 UNITS/ML 10ML VIAL ONE (10:43)
[2018-03-13] MEDS ORDERED: EPINEPHrine 1:10,000 (P-F SYR) 1 MG/10 ML DISP.SYRIN ONE (10:55)
[2018-03-13 11:22] LABS: PLATELET ESTIMATE ADEQUATE
--- NOTE | 2018-03-13 11:39 | PN ---
Teaching Attending Note Name of Resident: Wanda Trejo ATTENDING PHYSICIAN STATEMENT I saw and evaluated the patient. I reviewed the resident's note and discussed the case with the resident. I agree with the resident's findings and plan as documented. Pt seen and examined in the ICU. No complaints this AM, wanted to move his bowels before HD catheter placed. Upon returning from the bathroom, became unresponsive and pulseless with telemetry showing Vtach. See code sheet for further details. Unable to achieve ROSC. Pt at 11:03. Mack Rascon MD
--- NOTE | 2018-03-13 11:40 | PROC ---
Intubation - Intubation Reason for Intubation: Respiratory Failure Time of Intubation: 10:35 Intubation Method: orotracheal Blade used: Mac (4) Tube Size (cm): 8.0 Tube position @ lip (cm): 23 Tube position confirmed by: Direct visualization, CO2 detector, Chest x-ray, Breath sounds Breath Sounds after Intubation: equal
--- NOTE | 2018-03-13 12:00 | PN ---
Progress Note, Physician - Current Medication List Current Medications: Active Medications Sodium Chloride (Normal Saline -) 250 mls @ 3,000 mls/hr IV PRN PRN PRN Reason: Hypotension during Dialysis Stop: 03/13/18 22:25 Sodium Bicarbonate 150 meq/ (Dextrose) 1,150 mls @ 100 mls/hr IV Q11H ZENY Last Admin: 03/13/18 02:00 Dose: 100 mls/hr Piperacillin Sod/Tazobactam (Sod 2.25 gm/ Dextrose) 50 mls @ 100 mls/hr IVPB Q8H-IV ZENY; Protocol Last Admin: 03/13/18 09:29 Dose: 100 mls/hr Insulin Detemir (Levemir Vial) 10 units SQ HS ZENY Last Admin: 03/12/18 22:25 Dose: Not Given Ondansetron HCl (Zofran Injection) 4 mg IVPUSH Q6H PRN PRN Reason: NAUSEA - Objective Vital Signs: Vital Signs Temperature 97.8 F 03/13/18 08:00 Pulse Rate 95 H 03/13/18 10:00 Respiratory Rate 18 03/13/18 10:00 Blood Pressure 127/85 03/13/18 10:00 O2 Sat by Pulse Oximetry (%) 99 03/13/18 10:00 Labs: CBC, BMP 03/13/18 05:30 03/13/18 05:30 INR, PTT INR 1.19 (0.83-1.09) H 03/12/18 17:42 Problem List - Problems (1) Pancreatic adenomas and carcinomas Code(s): C25.9 - MALIGNANT NEOPLASM OF PANCREAS, UNSPECIFIED; D13.6 - BENIGN NEOPLASM OF PANCREAS Assessment/Plan called buy dr law pt exspired 1103 am today code called prior to sec dialysis comforted family\pt reqested to be cremated awaiting cert for me to sigm
--- NOTE | 2018-03-13 12:52 | PN ---
Progress Note (short form) - Note Progress Note: Renal Called by ICU and informed that pt . Pt was dialyzed last night however could not complete session as catheter was not working. Surgery and ICU called for new catheter. Patient had a cardiac arrest prior to his second dialysis session. Spoke to family at bedside. They understand nature of metastatic pancreatic cancer and its prognosis. Support offered. Discussed with medical attending as well. Dr Moura Problem List - Problems (1) WINDY (acute kidney injury) Code(s): N17.9 - ACUTE KIDNEY FAILURE, UNSPECIFIED (2) Hyperkalemia Code(s): E87.5 - HYPERKALEMIA (3) Acidosis Code(s): E87.2 - ACIDOSIS (4) Acute renal failure Code(s): N17.9 - ACUTE KIDNEY FAILURE, UNSPECIFIED Qualifiers: Acute renal failure type: unspecified Qualified Code(s): N17.9 - Acute kidney failure, unspecified (5) Pancreas cancer Code(s): C25.9 - MALIGNANT NEOPLASM OF PANCREAS, UNSPECIFIED Qualifiers: Pancreatic malignancy location: unspecified Qualified Code(s): C25.9 - Malignant neoplasm of pancreas, unspecified (6) Pancreatic adenomas and carcinomas Code(s): C25.9 - MALIGNANT NEOPLASM OF PANCREAS, UNSPECIFIED; D13.6 - BENIGN NEOPLASM OF PANCREAS
--- NOTE | 2018-03-13 13:27 | PN ---
Physical Exam: SUBJECTIVE: Patient seen and examined. Patient was AAOx3 this am, no complaints ; plan for HD; before placing dialysis catheter patient stated he wanted to move hos bowels, after returning from bathroom; nurse called out for help. Patient went in to Vtach and cardiac arrest. Full details of code in chart. OBJECTIVE: Laboratory Results - last 24 hr 03/12/18 03/12/18 03/12/18 14:29 17:42 17:42 WBC 23.2 H RBC 5.50 Hgb 15.2 Hct 46.8 D MCV 85.1 MCH 27.6 MCHC 32.5 RDW 15.5 Plt Count 370 D MPV 7.7 Absolute Neuts (auto) 21.1 H Total Counted 100 Neutrophils % 90.8 H Neutrophils % (Manual) 91.0 H Band Neutrophils % Lymphocytes % 1.4 L D Lymphocytes % (Manual) 3.0 L Monocytes % 7.4 Monocytes % (Manual) 6 Eosinophils % 0.0 D Eosinophils % (Manual) Basophils % 0.4 Basophils % (Manual) Myelocytes % (Man) Promyelocytes % (Man) Blast Cells % (Manual) Nucleated RBC % 0 Metamyelocytes Differential Comment Man diff performed Platelet Estimate Adequate Platelet Comment Polychromasia 1+ Anisocytosis 1+ Macrocytosis 1+ PT with INR 13.40 H INR 1.19 H PTT (Actin FS) 27.0 Sodium 117 L* D Potassium 21.7 H* D Chloride 84 L D Carbon Dioxide 11 L D Anion Gap 22 H BUN 135 H* D Creatinine 11.1 H* Creat Clearance w eGFR 4.61 POC Glucometer Random Glucose 275 H D Lactic Acid Calcium < 5.0 L* D Phosphorus 14.5 H* D Magnesium 2.8 H D Total Bilirubin 2.5 H AST 88 H D ALT 47 D Alkaline Phosphatase 246 H D Creatine Kinase 46 Troponin I < 0.02 Total Protein 6.6 Albumin 2.4 L Total Amylase Lipase 215 Urine Color Urine Appearance Urine pH Ur Specific Loraine Urine Protein Urine Glucose (UA) Urine Ketones Urine Blood Urine Nitrite Urine Bilirubin Urine Urobilinogen Ur Leukocyte Esterase Urine WBC (Auto) Urine RBC (Auto) Ur Epithelial Cells Urine Bacteria Urine Mucus Peritoneal WBC Peritoneal RBC Peritoneal Tot Protein Peritoneal Albumin Peritoneal LDH Peritoneal Glucose Peritoneal Amylase Hep C Ab Diagnostic Hepatitis C RNA HCV RNA PCR log hand coper/ml HCV RNA (PCR) IUs/ml HCV RNA PCR w/Genot Rflx Liver Fibrosis Inter Blood Type Antibody Screen 03/12/18 03/12/18 03/12/18 17:42 17:42 17:50 WBC RBC Hgb Hct MCV MCH MCHC RDW Plt Count MPV Absolute Neuts (auto) Total Counted Neutrophils % Neutrophils % (Manual) Band Neutrophils % Lymphocytes % Lymphocytes % (Manual) Monocytes % Monocytes % (Manual) Eosinophils % Eosinophils % (Manual) Basophils % Basophils % (Manual) Myelocytes % (Man) Promyelocytes % (Man) Blast Cells % (Manual) Nucleated RBC % Metamyelocytes Differential Comment Platelet Estimate Platelet Comment Polychromasia Anisocytosis Macrocytosis PT with INR INR PTT (Actin FS) Sodium 124 L* Potassium 7.0 H* D Chloride 93 L D Carbon Dioxide 10 L Anion Gap 21 H BUN 133 H* Creatinine 10.8 H* Creat Clearance w eGFR 4.75 POC Glucometer Random Glucose 255 H Lactic Acid 1.3 Calcium 7.7 L D Phosphorus 13.7 H* Magnesium 3.0 H Total Bilirubin 2.2 H AST 82 H ALT 42 Alkaline Phosphatase 252 H Creatine Kinase 33 L Troponin I < 0.02 Total Protein 5.3 L Albumin 2.0 L Total Amylase Lipase Urine Color Urine Appearance Urine pH Ur Specific Loraine Urine Protein Urine Glucose (UA) Urine Ketones Urine Blood Urine Nitrite Urine Bilirubin Urine Urobilinogen Ur Leukocyte Esterase Urine WBC (Auto) Urine RBC (Auto) Ur Epithelial Cells Urine Bacteria Urine Mucus Peritoneal WBC Peritoneal RBC Peritoneal Tot Protein Peritoneal Albumin Peritoneal LDH Peritoneal Glucose Peritoneal Amylase Hep C Ab Diagnostic Hepatitis C RNA HCV RNA PCR log hand coper/ml HCV RNA (PCR) IUs/ml HCV RNA PCR w/Genot Rflx Liver Fibrosis Inter Blood Type O POSITIVE Antibody Screen Negative 03/12/18 03/12/18 03/12/18 19:08 19:25 22:24 WBC RBC Hgb Hct MCV MCH MCHC RDW Plt Count MPV Absolute Neuts (auto) Total Counted Neutrophils % Neutrophils % (Manual) Band Neutrophils % Lymphocytes % Lymphocytes % (Manual) Monocytes % Monocytes % (Manual) Eosinophils % Eosinophils % (Manual) Basophils % Basophils % (Manual) Myelocytes % (Man) Promyelocytes % (Man) Blast Cells % (Manual) Nucleated RBC % Metamyelocytes Differential Comment Platelet Estimate Platelet Comment Polychromasia Anisocytosis Macrocytosis PT with INR INR PTT (Actin FS) Sodium Potassium Chloride Carbon Dioxide Anion Gap BUN Creatinine Creat Clearance w eGFR POC Glucometer [id number] Random Glucose Lactic Acid Calcium Phosphorus Magnesium Total Bilirubin AST ALT Alkaline Phosphatase Creatine Kinase Troponin I Total Protein Albumin Total Amylase Lipase Urine Color Urine Appearance Urine pH Ur Specific [place] Urine Protein Urine Glucose (UA) Urine Ketones Urine Blood Urine Nitrite Urine Bilirubin Urine Urobilinogen Ur Leukocyte Esterase Urine WBC (Auto) Urine RBC (Auto) Ur Epithelial Cells Urine Bacteria Urine Mucus Peritoneal WBC 2137 Peritoneal RBC 71632 Peritoneal Tot Protein 4 Peritoneal Albumin 2 Peritoneal LDH 607 Peritoneal Glucose 226 Peritoneal Amylase 11 Hep C Ab Diagnostic Hepatitis C RNA HCV RNA PCR log hand coper/ml HCV RNA (PCR) IUs/ml HCV RNA PCR w/Genot Rflx Liver Fibrosis Interp Blood Type Antibody Screen 03/12/18 03/12/18 03/12/18 23:20 23:30 23:30 WBC 22.1 H RBC 5.38 Hgb 14.7 Hct 45.6 MCV 84.8 MCH 27.4 MCHC 32.3 RDW 15.3 Plt Count 368 MPV 7.8 Absolute Neuts (auto) 19.5 H Total Counted Neutrophils % 88.1 H Neutrophils % (Manual) 90.6 H Band Neutrophils % 0.8 Lymphocytes % 2.3 L D Lymphocytes % (Manual) 1.6 L D Monocytes % 9.3 Monocytes % (Manual) 6 Eosinophils % 0.1 D Eosinophils % (Manual) 0.0 Basophils % 0.2 Basophils % (Manual) 0.0 Myelocytes % (Man) 0 Promyelocytes % (Man) 0 Blast Cells % (Manual) 0 Nucleated RBC % 0 Metamyelocytes 1 Differential Comment Platelet Estimate Platelet Comment Polychromasia Anisocytosis Macrocytosis PT with INR INR PTT (Actin FS) Sodium 126 L Potassium 6.8 H* Chloride 91 L Carbon Dioxide 15 L D Anion Gap 20 H BUN 145 H* Creatinine 10.9 H* Creat Clearance w eGFR 4.71 POC Glucometer Random Glucose 200 H D Lactic Acid Calcium 7.5 L Phosphorus Magnesium Total Bilirubin AST ALT Alkaline Phosphatase Creatine Kinase Troponin I Total Protein Albumin Total Amylase Lipase Urine Color Loren Urine Appearance Cloudy Urine pH 5.0 Ur Specific Loraine 1.016 Urine Protein 2+ H Urine Glucose (UA) 1+ H Urine Ketones Negative Urine Blood 2+ H Urine Nitrite Negative Urine Bilirubin Negative Urine Urobilinogen Negative Ur Leukocyte Esterase 3+ H Urine WBC (Auto) 23 Urine RBC (Auto) 21 Ur Epithelial Cells Rare Urine Bacteria Rare Urine Mucus Rare Peritoneal WBC Peritoneal RBC Peritoneal Tot Protein Peritoneal Albumin Peritoneal LDH Peritoneal Glucose Peritoneal Amylase Hep C Ab Diagnostic Hepatitis C RNA HCV RNA PCR log hand coper/ml HCV RNA (PCR) IUs/ml HCV RNA PCR w/Genot Rflx Liver Fibrosis Interp Blood Type Antibody Screen 03/13/18 03/13/18 03/13/18 00:20 00:20 05:30 WBC 20.9 H RBC 5.10 Hgb 14.1 Hct 43.2 MCV 84.7 MCH 27.6 MCHC 32.5 RDW 15.0 Plt Count 238 D MPV 7.9 Absolute Neuts (auto) 18.3 H Total Counted 100 Neutrophils % 87.5 H Neutrophils % (Manual) 90.0 H Band Neutrophils % Lymphocytes % 2.3 L Lymphocytes % (Manual) 2.0 L Monocytes % 9.7 Monocytes % (Manual) 8 Eosinophils % 0.2 D Eosinophils % (Manual) Basophils % 0.3 Basophils % (Manual) Myelocytes % (Man) Promyelocytes % (Man) Blast Cells % (Manual) Nucleated RBC % 0 Metamyelocytes Differential Comment Platelet Estimate Adequate Platelet Comment Polychromasia Anisocytosis Macrocytosis PT with INR INR PTT (Actin FS) Sodium 127 L Potassium 6.6 H* Chloride 93 L Carbon Dioxide 15 L Anion Gap 19 H BUN 145 H* Creatinine 10.7 H* Creat Clearance w eGFR 4.81 POC Glucometer Random Glucose 198 H Lactic Acid Calcium 7.3 L Phosphorus Magnesium Total Bilirubin 2.3 H AST 99 H D ALT 44 Alkaline Phosphatase 240 H D Creatine Kinase Troponin I Total Protein 4.9 L Albumin 1.8 L Total Amylase 30 Lipase Urine Color Urine Appearance Urine pH Ur Specific [place] Urine Protein Urine Glucose (UA) Urine Ketones Urine Blood Urine Nitrite Urine Bilirubin Urine Urobilinogen Ur Leukocyte Esterase Urine WBC (Auto) Urine RBC (Auto) Ur Epithelial Cells Urine Bacteria Urine Mucus Peritoneal WBC Peritoneal RBC Peritoneal Tot Protein Peritoneal Albumin Peritoneal LDH Peritoneal Glucose Peritoneal Amylase Hep C Ab Diagnostic Cancelled Hepatitis C RNA Cancelled HCV RNA PCR log hand coper/ml Cancelled HCV RNA (PCR) IUs/ml Cancelled HCV RNA PCR w/Genot Rflx Cancelled Liver Fibrosis Interp Cancelled Blood Type Antibody Screen 03/13/18 03/13/18 05:30 06:43 WBC RBC Hgb Hct MCV MCH MCHC RDW Plt Count MPV Absolute Neuts (auto) Total Counted Neutrophils % Neutrophils % (Manual) Band Neutrophils % Lymphocytes % Lymphocytes % (Manual) Monocytes % Monocytes % (Manual) Eosinophils % Eosinophils % (Manual) Basophils % Basophils % (Manual) Myelocytes % (Man) Promyelocytes % (Man) Blast Cells % (Manual) Nucleated RBC % Metamyelocytes Differential Comment Platelet Estimate Platelet Comment Polychromasia Anisocytosis Macrocytosis PT with INR INR PTT (Actin FS) Sodium 126 L Potassium 6.8 H* Chloride 89 L Carbon Dioxide 18 L Anion Gap 19 H BUN 137 H* Creatinine 10.6 H* Creat Clearance w eGFR 4.86 POC Glucometer [phone] Random Glucose 254 H D Lactic Acid Calcium 7.3 L Phosphorus 11.9 H* Magnesium 3.0 H Total Bilirubin 2.4 H AST 120 H D ALT 48 Alkaline Phosphatase 251 H D Creatine Kinase Troponin I Total Protein 4.8 L Albumin 1.7 L Total Amylase Lipase Urine Color Urine Appearance Urine pH Ur Specific [place] Urine Protein Urine Glucose (UA) Urine Ketones Urine Blood Urine Nitrite Urine Bilirubin Urine Urobilinogen Ur Leukocyte Esterase Urine WBC (Auto) Urine RBC (Auto) Ur Epithelial Cells Urine Bacteria Urine Mucus Peritoneal WBC Peritoneal RBC Peritoneal Tot Protein Peritoneal Albumin Peritoneal LDH Peritoneal Glucose Peritoneal Amylase Hep C Ab Diagnostic Hepatitis C RNA HCV RNA PCR log hand coper/ml HCV RNA (PCR) IUs/ml HCV RNA PCR w/Genot Rflx Liver Fibrosis Interp Blood Type Antibody Screen Active Medications Generic Name Dose Route Start Last Admin Trade Name Freq PRN Reason Stop Dose Admin Sodium Chloride 250 mls @ 3,000 mls/hr 03/12/18 22:25 Normal Saline - IV 03/13/18 22:25 PRN PRN Hypotension during Dialysis Sodium Bicarbonate 150 meq/ 1,150 mls @ 100 mls/hr 03/13/18 01:15 03/13/18 02 :00 Dextrose IV 100 mls/hr Q11H ZENY Administration Piperacillin Sod/Tazobactam 50 mls @ 100 mls/hr 03/13/18 10:00 03/13/18 09:29 Sod 2.25 gm/ Dextrose IVPB 100 mls/hr Q8H-IV ZENY Administration Protocol Insulin Detemir 10 units 03/12/18 22:00 03/12/18 22:25 Levemir Vial SQ Not Given HS ZENY Ondansetron HCl 4 mg 03/12/18 23:33 Zofran Injection IVPUSH Q6H PRN NAUSEA ASSESSMENT/PLAN: This is a 67 year old male with recently diagnosed pancreatic CA with liver eliel , diagnosed three weeks ago who presented with shortness of breath, abdominal distension, n, decreased po intake and generalized weakness for the past 5 days. Admitted to ICU in renal failure needing dialysis. Before placement for HD catheter patient cardiac arrested. Full code note in chart. Visit type - Emergency Visit Emergency Visit: Yes ED Registration Date: 03/12/18 Care time: The patient presented to the Emergency Department on the above date and was hospitalized for further evaluation of their emergent condition. - New Patient This patient is new to me today: Yes Date on this admission: 03/13/18 - Critical Care Critical Care patient: Yes Total Critical Care Time (in minutes): 50 Critical Care Statement: The care of this patient involved high complexity decision making to prevent further life threatening deterioration of the patient 's condition and/or to evaluate & treat vital organ system(s) failure or risk of failure.
--- NOTE | 2018-03-13 13:27 | EKG ---
Test Reason : Blood Pressure : / mmHG Vent. Rate : 090 BPM Atrial Rate : 090 BPM P-R Int : 164 ms QRS Dur : 092 ms QT Int : 340 ms P-R-T Axes : 034 010 037 degrees QTc Int : 415 ms NORMAL SINUS RHYTHM LOW VOLTAGE QRS POSSIBLE ANTEROLATERAL INFARCT (CITED ON OR BEFORE 20-FEB-2018) ABNORMAL ECG WHEN COMPARED WITH ECG OF 20-FEB-2018 09:38, QUESTIONABLE CHANGE IN INITIAL FORCES OF LATERAL LEADS ST ELEVATION NOW PRESENT IN INFERIOR LEADS Confirmed by MUKESH CHRISTIE MD ([id number]) on 03/13/2018 1:27:24 PM Referred By: Confirmed By:MUKESH CHRISTIE MD
[2018-03-13 15:28] LABS: MAGNESIUM 2.8 mg/dL (1.8-2.4)
[2018-03-13 15:38] LABS: PHOSPHOROUS 12.7 mg/dL (2.5-4.9)
[2018-03-13] MEDS ORDERED: SODIUM CHLORIDE 500 ML IV STA (16:32)
--- NOTE | 2018-03-13 17:29 | PN ---
Progress Note (short form) - Note Progress Note: Called to see patient for unresponsiveness at 10:33. On exam the patient did not respond to verbal or physical stimuli. Absent breath sounds and patient was pulseless. Code ran for 30 minutes. Pupils fixed and dilated, no spontaneous breaths or pulses felt for one minute. Patient pronounced at 11:03. Next of kin/family Mother and daughter notified. 03/13/2018 Dr. Sayra Moreau D.O.
[2018-03-14 16:19] LABS: HBSAG SCREEN Negative (Negative); HEP B CORE AB, TOT Negative (Negative)
--- NOTE | 2018-03-14 16:31 | EKG ---
Test Reason : Blood Pressure : / mmHG Vent. Rate : 093 BPM Atrial Rate : 093 BPM P-R Int : 166 ms QRS Dur : 086 ms QT Int : 346 ms P-R-T Axes : 033 -57 024 degrees QTc Int : 430 ms NORMAL SINUS RHYTHM LEFT AXIS DEVIATION LOW VOLTAGE QRS INFERIOR INFARCT , AGE UNDETERMINED POSSIBLE ANTEROLATERAL INFARCT (CITED ON OR BEFORE 20-FEB-2018) ABNORMAL ECG WHEN COMPARED WITH ECG OF 12-MAR-2018 13:06, NO SIGNIFICANT CHANGE WAS FOUND Confirmed by Sajan Nice ([id number]) on 03/14/2018 4:31:33 PM Referred By: Confirmed By:Sajan Nice
[2018-03-15 16:11] LABS: PERITONEAL FLUID LYMPHOCYTE 17 %; PERITONEAL FLUID MACROPHAGE 40 %; PERITONEAL FLUID MESOTHELIAL 1 %; PERITONEAL FLUID NEUTROPHIL 42 %
== END 2018-03-13 11:03 | disposition expired | DRG 682 ==
LOC: JER 11:40 → JERBED 19:29 → JICU 03-13 03:01
PROVIDERS: ADMIT Family Medicine; ATTEND Family Medicine
PROC: 0W9G3ZX Drainage of Peritoneal Cavity, Percutaneous Approach, Diagnostic (ICD-10-PCS; 2018-03-12)
PROC: 5A1935Z Respiratory Ventilation, Less than 24 Consecutive Hours (ICD-10-PCS; principal; 2018-03-13)
PROC: 0BH17EZ Insertion of Endotracheal Airway into Trachea, Via Natural or Artificial Opening (ICD-10-PCS; 2018-03-13)
DX: N17.9 Acute kidney failure, unspecified (principal); J96.00 Acute respiratory failure, unspecified whether with hypoxia or hypercapnia; C25.9 Malignant neoplasm of pancreas, unspecified; E87.2 Acidosis; C78.7 Secondary malignant neoplasm of liver and intrahepatic bile duct; Z68.41 Body mass index [BMI] 40.0-44.9, adult; E87.1 Hypo-osmolality and hyponatremia; I47.2 Ventricular tachycardia; R18.8 Other ascites; N20.0 Calculus of kidney; K57.90 Diverticulosis of intestine, part unspecified, without perforation or abscess without bleeding; E87.5 Hyperkalemia; D72.829 Elevated white blood cell count, unspecified; E83.39 Other disorders of phosphorus metabolism; E66.9 Obesity, unspecified; E87.6 Hypokalemia; E83.41 Hypermagnesemia; I12.9 Hypertensive chronic kidney disease with stage 1 through stage 4 chronic kidney disease, or unspecified chronic kidney disease; E11.22 Type 2 diabetes mellitus with diabetic chronic kidney disease; N18.9 Chronic kidney disease, unspecified
CPT/HCPCS: 36415; 71045-TC-FY; 74176-TC; 76700-TC; 80048; 80053; 81003; 81015; 82042; 82150; 82550; 82945; 82962; 83605; 83615; 83690; 83735; 84100; 84157; 84484; 85025; 85610; 85730; 86704; 86706; 86708; 86803; 86850; 86900; 86901; 87040; 87070; 87075; 87086; 87205; 87340; 89051; 93005; 93010; 99285-25; J7030